=== PATIENT | male | born 1960 | race American Indian/Alaskan Native ===

== ENCOUNTER 2017-01-16 07:57 | Emergency (ER) | payer MEDICARE ==
[2017-01-16] MEDS ORDERED: ULTRAM PO ONE (09:54)
--- NOTE | 2017-01-16 10:20 | XRay Report ---
THORACIC SPINE: History: Back tenderness, pain. Mild to moderate multilevel degenerative disc disease is present throughout the thoracic spine. No compression deformity, malalignment, bone lesion or posterior rib abnormality is detected. IMPRESSION: Mild thoracic spondylosis.
--- NOTE | 2017-01-16 10:20 | XRay Report ---
LUMBOSACRAL SPINE, 3 VIEWS: History: Back pain Findings: Moderate degenerative disc disease and facet arthropathy are identified at L4-5 and L5-S1. Minimal degenerative changes are noted at the remaining levels. No fracture or bone lesion is appreciated. The sacrum and SI joints are within normal limits. Impression: Lumbar spondylosis as described.
[2017-01-16] MEDS ORDERED: TORADOL IM ONE (10:21)
[2017-01-16 11:51] VITALS: BP 134/88
--- NOTE | 2017-01-17 22:07 | Emergency Department Report ---
Entered by GERA JORDAN, acting as scribe for REILLY PLEITEZ NP. ED Back Pain/Injury HPI - General Chief Complaint: Back Pain/Injury Stated Complaint: BACK PAIN Time Seen by Provider: 01/16/17 09:36 Source: patient Limitations: No Limitations - History of Present Illness Initial Comments: 56 year old male with a PMHx of HTN, GERD, and arthritis presents to the ED c/o of back pain that began 3 days ago. 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 Rates pain a 1/10 in severity, and sharp and burning in quality. He states that his pain radiates from his lower back to mid back. Notes pain worsens while lying flat and turning, but states his pain is improved with movement. Patient history of back pain. Denies nausea, vomiting , numbness, tingling, chest pain, and shortness of breath. Patient states that he was driven to the ED by his friend, Leilani, and will not be driving home from the ED. Denies tobacco use and EtOH consumption. NKDA. OCONNELL Complaint: back pain (lower and mid back) Onset/Timin -: days(s) Similar Symptoms Previously: No Place: work (lifting pipes) Radiation: other (radiates from lower back to mid back) Severity: mild Severity scale (0 -10): 1 Quality: burning, sharp Consistency: constant Improves With: movement Worsens With: other (lying flat and turning) Context: while lifting (pipes at work) Associated Symptoms: denies other symptoms. denies: weakness, chest pain, numbness, difficulty walking, cough, difficulty urinating, fever/chills, headaches, abdominal pain, nausea/vomiting, shortness of breath, other ( swelling and pain iin lower extremities) - Related Data Home Medications Medication Instructions Recorded Confirmed Last Taken HYDROcodone/APAP 7.5-325 [[place] 1 tab PO PRN PRN 07/31/16 08/20/16 2 Months Ago 7.5-325 mg TAB] amLODIPine [Norvasc] 10 mg PO DAILY 07/31/16 08/20/16 08/20/16 05:30 10MG Previous Rx's Medication Instructions Recorded Last Taken Type Lansoprazole [Prevacid] 15 mg PO BID #30 cap 01/10/16 1 Week Ago Rx Cyclobenzaprine [Flexeril] 10 mg PO TID PRN #30 tablet 04/02/16 3 Days Ago Rx Metaxalone [Skelaxin] 800 mg PO TID PRN #20 tablet 04/02/16 2 Weeks Ago Rx Lisinopril/Hydrochlorothiazide 1 tab PO QDAY #30 tab 06/29/16 08/20/16 05:30 Rx [Zestoretic 20-25 mg] 1 TAB traMADol [Ultram 50 MG tab] 50 mg PO Q6HR PRN #10 tablet 08/14/16 08/19/16 18: 00 Rx HYDROcodone/APAP 10-325 [[place] 1 each PO Q6HR PRN #10 tablet 09/09/16 Unknown Rx 10/325] HYDROcodone/APAP 5-325 [[place] 1 each PO Q6HR PRN 5 Days 01/16/17 Unknown Rx 5/325] Naproxen [Naprosyn TAB] 500 mg PO BID 10 Days 01/16/17 Unknown Rx Allergies Allergy/AdvReac Type Severity Reaction Status Date / Time No Known Allergies Allergy Verified 09/09/16 08:33 ED Review of Systems Comment: All other systems reviewed and negative Constitutional: denies: chills, fever, weakness, other (tingling) Eyes: denies: eye pain, eye discharge, vision change ENT: denies: ear pain, throat pain Respiratory: denies: cough, orthopnea, shortness of breath, SOB with exertion, SOB at rest Cardiovascular: denies: chest pain, dyspnea on exertion, orthopnea Endocrine: no symptoms reported Gastrointestinal: denies: nausea, vomiting Genitourinary: denies: urgency, dysuria Musculoskeletal: back pain (lower and mid back). denies: joint swelling (lower extremities), other (hip pain and leg pain) Skin: denies: rash, lesions Neurological: denies: numbness, paresthesias, abnormal gait Psychiatric: denies: anxiety, depression Hematological/Lymphatic: denies: easy bleeding, easy bruising ED Past Medical Hx - Past Medical History Previous Medical History?: Yes Hx Hypertension: Yes (X 10 YRS; akes lisinopril and amlodipine) Hx CVA: No Hx Heart Attack/AMI: No Hx Congestive Heart Failure: No Hx Diabetes: No Hx Deep Vein Thrombosis: No Hx Pulmonary Embolism: No Hx GERD: Yes Hx Liver Disease: No Hx Renal Disease: No Hx Sickle Cell Disease: No Hx Arthritis: Yes Hx Seizures: No Hx Kidney Stones: No Hx Psychiatric Treatment: No Hx Asthma: No Hx COPD: No Hx Tuberculosis: No Hx Dementia: No Hx HIV: No Additional medical history: chronic back pain; chronic left leg pain. glaucoma - Surgical History Past Surgical History?: Yes Hx Coronary Stent: No Hx Open Heart Surgery: No Hx Pacemaker: No Hx Internal Defibrillator: No Hx Cholecystectomy: No Hx Appendectomy: No Hx Breast Surgery: No Additional Surgical History: left leg/ankle surgery,left knee surgery. cataract surgery both eyes. left total knee replacement and bone graft - Social History Smoking Status: Never Smoker Substance Use Type: None - Medications Home Medications: Home Medications Medication Instructions Recorded Confirmed Last Taken Type Lansoprazole [Prevacid] 15 mg PO BID #30 cap 01/10/16 08/20/16 1 Week Ago Rx Cyclobenzaprine [Flexeril] 10 mg PO TID PRN #30 tablet 04/02/16 08/20/16 3 Days Ago Rx Metaxalone [Skelaxin] 800 mg PO TID PRN #20 tablet 04/02/16 08/20/16 2 Weeks Ago Rx Lisinopril/Hydrochlorothiazide 1 tab PO QDAY #30 tab 06/29/16 08/20/16 08/20/16 05:30 Rx [Zestoretic 20-25 mg] 1 TAB HYDROcodone/APAP 7.5-325 [[place] 1 tab PO PRN PRN 07/31/16 08/20/16 2 Months Ago History 7.5-325 mg TAB] amLODIPine [Norvasc] 10 mg PO DAILY 07/31/16 08/20/16 08/20/16 05:30 History 10MG traMADol [Ultram 50 MG tab] 50 mg PO Q6HR PRN #10 tablet 08/14/16 08/20/1608/19 18:00 Rx HYDROcodone/APAP 10-325 [[place] 1 each PO Q6HR PRN #10 tablet 09/09/16 Unknown Rx 10/325] HYDROcodone/APAP 5-325 [[place] 1 each PO Q6HR PRN 5 Days 01/16/17 Unknown Rx 5/325] Naproxen [Naprosyn TAB] 500 mg PO BID 10 Days 01/16/17 Unknown Rx ED Physical Exam - General Limitations: No Limitations General appearance: alert, in no apparent distress - Head Head exam: Present: atraumatic, normocephalic - Eye Eye exam: Present: normal appearance, EOMI Pupils: Present: normal accommodation - ENT ENT exam: Present: normal exam, mucous membranes moist - Neck Neck exam: Present: normal inspection, full ROM. Absent: tenderness, lymphadenopathy - Respiratory Respiratory exam: Present: normal lung sounds bilaterally, respiratory distress. Absent: wheezes, rales, rhonchi, stridor - Cardiovascular Cardiovascular Exam: Present: regular rate, normal rhythm. Absent: systolic murmur, diastolic murmur, rubs, gallop - GI/Abdominal GI/Abdominal exam: Present: soft, normal bowel sounds. Absent: distended, tenderness, guarding, rebound, rigid - Extremities Exam Extremities exam: Present: normal inspection, full ROM, normal capillary refill. Absent: tenderness, joint swelling, calf tenderness - Back Exam Back exam: Present: normal inspection, full ROM, tenderness (mid lumbar and thoracic). Absent: CVA tenderness (R), CVA tenderness (L), paraspinal tenderness, vertebral tenderness - Expanded Back Exam Expanded Back exam: Absent: saddle anesthesia Back exam: Negative Straight Leg Raising: Left, Right - Neurological Exam Neurological exam: Present: alert, oriented X3, CN II-XII intact, normal gait - Expanded Neurological Exam Expanded Patient oriented to: Present: person, place, time Speech: Present: fluid speech Motor strength exam: RUE: 5, LUE: 5, RLE: 5, LLE: 5 DTR: bicep (R): 2+, bicep (L): 2+, tricep (R): 2+, tricep (L): 2+, knee (R): 2+ , knee (L): 2+, ankle (R): 2+, ankle (L): 2+ Best Eye Response ([place]): (4) open spontaneously Best Motor Response ([place]): (6) obeys commands Best Verbal Response ([place]): (5) oriented [place] Total: 15 - Psychiatric Psychiatric exam: Present: normal affect, normal mood - Skin Skin exam: Present: warm, dry, intact. Absent: ecchymosis ED Course Vital Signs 01/16/17 01/16/1701/16/17 08:04 10:33 11:09 Temperature 98.0 F Pulse Rate 92 H 87 Respiratory 18 16 16 Rate Blood Pressure 143/92 Blood Pressure 148/93 [Left] O2 Sat by Pulse 99 98 Oximetry 01/16/17 11:50 Temperature Pulse Rate 82 Respiratory 18 Rate Blood Pressure Blood Pressure 134/88 [Left] O2 Sat by Pulse 97 Oximetry - Reevaluation(s) Reevaluation #1: 01/16/17 10:59 Patient stated pain level is 2/10. ED Medical Decision Making - Medical Decision Making Ed course: 56 year old male presents with lumbar and thoracic back pain 1-Ultram 50 mg by mouth administered in the ED 2- x-ray of the lumbar and thoracic: lumbar and thoracic spondylosis. Patient was notified about the x-ray results. 3- at this time the patient does not seem toxic or ill appearance. No signs of any distress noted. 4- patient agrees to discharge plan and stated will follow up with orthopedic doctor in 3-5 days. 5- no further questions noted from the patient. ED Disposition Clinical Impression: Lumbar strain, Back pain Disposition: DISCHARGED TO HOME OR SELFCARE Is pt being admited?: No Does the pt Need Aspirin: No Condition: Stable Instructions: Naproxen (By mouth), Low Back Strain (ED) Additional Instructions: Please follow up with orthopedic doctor in 3-5 days If any sinus symptoms or worsening such as numbness or tingling, bladder stability, chest pain, shortness of breath, nausea vomiting please report back to emergency room. Take medications as prescribed. Take naproxen for pain first. If no improvement in one hour you could take [place]. Do not operate heavy machinery while taking [place]. Prescriptions: HYDROcodone/APAP 5-325 [[place] 5/325] 1 each PO Q6HR PRN 5 Days PRN Reason: Pain Naproxen [Naprosyn TAB] 500 mg PO BID 10 Days Referrals: EZEKIEL KELLY MD [Primary Care Provider] - 3-5 Days SHANNON MCCULLOUGH MD [Staff Physician] - 3-5 Days Forms: Work/School Release Form(ED) This documentation as recorded by the JULIAN payne JASMINE,accurately reflects the service I personally performed and the decisions made by ,REILLY PLEITEZ, VALERIY.
== END 2017-01-16 11:50 | disposition home or self-care (01) ==
LOC: ED 07:57
DX: S39.012A Strain of muscle, fascia and tendon of lower back, initial encounter (principal); I10 Essential (primary) hypertension; K21.9 Gastro-esophageal reflux disease without esophagitis; X50.0XXA Overexertion from strenuous movement or load, initial encounter; Y93.89 Activity, other specified; Y92.89 Other specified places as the place of occurrence of the external cause; Y99.8 Other external cause status; Z98.890 Other specified postprocedural states; Z96.652 Presence of left artificial knee joint
CPT/HCPCS: 72072; 72100; 96372; 99283; J1885

== ENCOUNTER 2017-05-19 08:47 | Emergency (ER) | payer MEDICARE | END 2017-05-19 11:00 | disposition left against medical advice (07) | LOC: ED 08:47 | DX: M25.562 Pain in left knee (principal); Z53.21 Procedure and treatment not carried out due to patient leaving prior to being seen by health care provider ==

== ENCOUNTER 2017-08-06 06:20 | Emergency (ER) | payer MEDICARE | END 2017-08-06 06:30 | disposition left against medical advice (07) | LOC: ED 06:20 | DX: M54.5 Low back pain (principal); Z53.21 Procedure and treatment not carried out due to patient leaving prior to being seen by health care provider ==

== ENCOUNTER 2017-09-27 08:11 | Emergency (ER) | payer MEDICARE ==
[2017-09-27 08:22] VITALS: BP 154/94
--- NOTE | 2017-09-27 09:36 | XRay Report ---
FINAL REPORT EXAM: XR SHOULDER 2+V RT HISTORY: RT SHOULDER PAIN TECHNIQUE: Three views right shoulder. PRIORS: None currently available. FINDINGS: There is no acute fracture. There is no evidence for healing fracture. There is no acute dislocation. [id number] degenerative arthrosis at the acromioclavicular and glenohumeral joints. There is no cortical destruction to suggest osteomyelitis. There are no suspicious osseous lesions. There are no radiopaque foreign objects. IMPRESSION: No acute osseous findings. Degenerative arthrosis.
[2017-09-27] MEDS ORDERED: FLEXERIL PO ONE (09:46)
[2017-09-27] MEDS ORDERED: NORCO 10/325 PO ONE (09:46)
--- NOTE | 2017-09-27 09:49 | Emergency Department Report ---
ED Upper Extremity Inj HPI - General Chief Complaint: Extremity Injury, Upper Stated Complaint: RIGHT SHOULDER PAIN Time Seen by Provider: 09/27/17 08:38 Source: patient Mode of arrival: Ambulatory Limitations: No Limitations - Related Data Home Medications Medication Instructions Recorded Confirmed Last Taken amLODIPine [Norvasc] 10 mg PO DAILY 07/31/16 05/30/17 06/18/17 07:00 Omeprazole Magnesium [PriLOSEC Otc] 20 mg PO QDAY 05/30/17 05/30/17 06/18/17 07: 00 traMADol [Ultram] 50 mg PO Q4HR PRN 06/18/17 06/18/17 06/18/17 07:00 Previous Rx's Medication Instructions Recorded Last Taken Type Lisinopril/Hydrochlorothiazide 1 tab PO QDAY #30 tab 06/29/16 06/18/17 07:00 Rx [Zestoretic 20-25 mg] Cyclobenzaprine [Flexeril] 10 mg PO BID PRN #12 tablet 09/27/17 Unknown Rx traMADol [Ultram] 50 mg PO BID PRN #12 tablet 09/27/17 Unknown Rx Allergies Allergy/AdvReac Type Severity Reaction Status Date / Time No Known Allergies Allergy Verified 09/27/17 08:18 ED Review of Systems ROS: Stated complaint: RIGHT SHOULDER PAIN Other details as noted in HPI Comment: All other systems reviewed and negative Musculoskeletal: other (r shoulder pain) ED Past Medical Hx - Past Medical History Hx Hypertension: Yes (X 10 YRS; akes lisinopril and amlodipine) Hx CVA: No Hx Heart Attack/AMI: No Hx Congestive Heart Failure: No Hx Diabetes: No Hx Deep Vein Thrombosis: No Hx Pulmonary Embolism: No Hx GERD: Yes Hx Liver Disease: No Hx Renal Disease: No Hx Sickle Cell Disease: No Hx Arthritis: Yes Hx Seizures: No Hx Kidney Stones: No Hx Psychiatric Treatment: No Hx Asthma: No Hx COPD: No Hx Tuberculosis: No Hx Dementia: No Hx HIV: No Additional medical history: chronic back pain; chronic left leg pain. glaucoma - Surgical History Hx Coronary Stent: No Hx Open Heart Surgery: No Hx Pacemaker: No Hx Internal Defibrillator: No Hx Cholecystectomy: No Hx Appendectomy: No Hx Breast Surgery: No Additional Surgical History: left leg/ankle surgery,left knee surgery. cataract surgery both eyes. left total knee replacement and bone graft - Social History Smoking Status: Never Smoker Substance Use Type: None - Medications Home Medications: Home Medications Medication Instructions Recorded Confirmed Last Taken Type Lisinopril/Hydrochlorothiazide 1 tab PO QDAY #30 tab 06/29/16 05/30/17 06/18/17 07:00 Rx [Zestoretic 20-25 mg] amLODIPine [Norvasc] 10 mg PO DAILY 07/31/16 05/30/17 06/18/17 07:00 History Omeprazole Magnesium [PriLOSEC Otc] 20 mg PO QDAY 05/30/17 05/30/17 06/18/17 07: 00 History traMADol [Ultram] 50 mg PO Q4HR PRN 06/18/17 06/18/17 06/18/17 07:00 History Cyclobenzaprine [Flexeril] 10 mg PO BID PRN #12 tablet 09/27/17 Unknown Rx traMADol [Ultram] 50 mg PO BID PRN #12 tablet 09/27/17 Unknown Rx ED Physical Exam - General Limitations: No Limitations General appearance: alert - Head Head exam: Present: atraumatic - Eye Eye exam: Present: normal appearance Pupils: Present: normal accommodation - ENT ENT exam: Present: normal exam, mucous membranes moist - Neck Neck exam: Present: normal inspection - Respiratory Respiratory exam: Present: normal lung sounds bilaterally - Cardiovascular Cardiovascular Exam: Present: regular rate - GI/Abdominal GI/Abdominal exam: Present: soft - Rectal Rectal exam: Present: deferred - Extremities Exam Extremities exam: Present: normal inspection, full ROM - Expanded Upper Extremity Exam Right Shoulder Exam: Present: full ROM. Absent: tenderness, swelling, abrasion, laceration, ecchymosis, deformity, crepidus, dislocation, erythema Elbow exam: Present: normal inspection Forearm Wrist exam: Present: normal inspection - Back Exam Back exam: Present: normal inspection, full ROM - Neurological Exam Neurological exam: Present: alert, oriented X3 - Psychiatric Psychiatric exam: Present: normal affect, normal mood - Skin Skin exam: Present: warm, dry, intact ED Course Vital Signs 09/27/17 08:18 Temperature 98.2 F Pulse Rate 100 H Respiratory 18 Rate Blood Pressure 154/94 O2 Sat by Pulse 100 Oximetry ED Medical Decision Making - Radiology Data Radiology results: report reviewed, image reviewed - Medical Decision Making see note - Differential Diagnosis ro dislocation or ac sep Critical care attestation.: If time is entered above; I have spent that time in minutes in the direct care of this critically ill patient, excluding procedure time. ED Disposition Clinical Impression: Sprain of shoulder Disposition: DC-01 TO HOME OR SELFCARE Is pt being admited?: No Does the pt Need Aspirin: No Condition: Stable Instructions: Shoulder Sprain (ED), Arthralgia (ED) Additional Instructions: alternate heat and ice med as ordered rest sling follow up ortho jensen Prescriptions: Cyclobenzaprine [Flexeril] 10 mg PO BID PRN #12 tablet PRN Reason: Muscle Spasm traMADol [Ultram] 50 mg PO BID PRN #12 tablet PRN Reason: Pain Referrals: PRIMARY CARE, [Primary Care Provider] - 3-5 Days SHANNON MCCULLOUGH MD [Staff Physician] - 3-5 Days Time of Disposition: 09:47
== END 2017-09-27 10:45 | disposition home or self-care (01) ==
LOC: ED 08:11
DX: S43.491A Other sprain of right shoulder joint, initial encounter (principal); I10 Essential (primary) hypertension; K21.9 Gastro-esophageal reflux disease without esophagitis; M19.90 Unspecified osteoarthritis, unspecified site; G89.29 Other chronic pain; X50.9XXA Other and unspecified overexertion or strenuous movements or postures, initial encounter; Y93.89 Activity, other specified; Y92.89 Other specified places as the place of occurrence of the external cause; Y99.8 Other external cause status
CPT/HCPCS: 99283

== ENCOUNTER 2017-12-04 05:49 | Emergency (ER) | payer SELFPAY | END 2017-12-04 07:50 | disposition left against medical advice (07) | LOC: EDBD → ED 05:49 | DX: M25.511 Pain in right shoulder (principal); Z53.21 Procedure and treatment not carried out due to patient leaving prior to being seen by health care provider ==

== ENCOUNTER 2017-12-05 08:55 | Emergency (ER) | payer MEDICAID, MEDICARE ==
[2017-12-05 09:07] VITALS: BP 150/96
--- NOTE | 2017-12-05 10:16 | Emergency Department Report ---
Chief Complaint: High BP Stated Complaint: R SHOULDER PAIN Time Seen by Provider: 12/05/17 09:52 - HPI History of Present Illness: Patient is a 57-year-old male with a history of hypertension controlled with medication who presents to ED today stating that he ran out of his medication for the past 2 days and needs a medication refill. Patient also states that he has chronic shoulder right shoulder pain which he has been seeing Dr. Crawford the orthopedic floor. Patient states Dr. Crawford is out of town and is not able to see him. Patient denies any symptoms today such as headache, vision, chest pain, shortness of breath or any other problems. - ROS Review of Systems: As noted in HPI, denies all other symptoms - Exam Vital Signs: Vital Signs 12/05/17 09:02 Temperature 97.7 F Pulse Rate 91 H Respiratory 20 Rate Blood Pressure 150/96 O2 Sat by Pulse 97 Oximetry Physical Exam: GENERAL: Alert and oriented x3, no apparent distress, Normal Gait, atraumatic. HEAD: Head is normocephalic and a-traumatic. LUNGS: Symetrical with respiration, No wheezing, no rales or crackles, CTAB. HEART: S1, S2 present, regular rate and rhythm without murmur, no rubs, no gallops. Non tender to palpation EXTREMITIES/MUSCULOSKELETAL: No cyanosis, clubbing, rash, lesions or edema. Full ROM bilaterallyon all extremities. NEUROLOGIC: The patient is cooperative with no focal neurologic deficits. Normal speech. No loss of sensation, SKIN: Warm and dry, No lesions, No ulceration or induration present. MSE screening note: Focused history and physical exam performed. Due to findings the following was ordered: ED Medical Decision Making - Medical Decision Making 57-year-old male presents with blood pressure medication refill ED Course: Patient has no symptoms during his stay sign discussed the patient follow up with his primary care physician. Discussed with the patient of any worsening or new onset of symptoms return to ED Vital signs are stable patient is in no acute distress ED Disposition for MSE Clinical Impression: Medication refill Disposition: DC-01 TO HOME OR SELFCARE Is pt being admited?: No Does the pt Need Aspirin: No Condition: Stable Instructions: Chronic Hypertension (ED) Additional Instructions: Make sure to follow up with the primary care physician as discussed. Take all your medications as you've been prescribed. If you have any worsening symptoms or develop new symptoms please return to ED immediately. Prescriptions: amLODIPine [Norvasc] 10 mg PO DAILY #30 tablet Lisinopril/Hydrochlorothiazide [Zestoretic 20-25 mg] 1 tab PO QDAY #30 tab traMADol [Ultram 50 MG tab] 50 mg PO Q6HR PRN #20 tablet PRN Reason: Pain Referrals: PRIMARY CAREMD [Primary Care Provider] - 3-5 Days NGOZI JARRETT MD [Referring] - 3-5 Days [facility] [Outside] - 3-5 Days [facility] [Outside] - 3-5 Days [facility] [Outside] - 3-5 Days [facility] [Outside] - 3-5 Days Forms: Work/School Release Form(ED) Time of Disposition: 10:18
== END 2017-12-05 10:33 | disposition home or self-care (01) ==
LOC: EDBD → ED 08:55
DX: Z76.0 Encounter for issue of repeat prescription (principal); I10 Essential (primary) hypertension; M25.511 Pain in right shoulder; G89.29 Other chronic pain
CPT/HCPCS: 99282

== ENCOUNTER 2017-12-18 08:57 | Emergency (ER) | payer MEDICARE, MEDICAID ==
[2017-12-18 09:49] VITALS: BP 151/85
[2017-12-18 10:42] LABS: Bilirubin,Urine NEG (Negative); Blood,Urine NEG (Negative); Color,Urine Yellow (Yellow); Protein,Urine <15 mg/dL mg/dL (Negative); Urobilinogen,Urine < 2.0 mg/dL (<2.0); WBC,Urine < 1.0 /HPF (0.0-6.0)
[2017-12-18] MEDS ORDERED: ULTRAM PO ONE (11:51)
--- NOTE | 2017-12-18 11:53 | Emergency Department Report ---
HPI - General Chief Complaint: Back Pain/Injury Time Seen by Provider: 12/18/17 11:37 - HPI HPI: Patient is a 57-year-old male with a history of hypertension controlled with medication who presents to ED complaining of upper back pain for the past 2 days. Patient states the pain came on suddenly. Patient states he had no trauma,injury or fall. Patient describes been as throbbing aching in nature, nonradiating, 5-10 intensity. Patient also says that he has been out of his blood pressure medications and needs a refill. Patient states he has an active primary care referral. Possible as refill on his Flonase for allergies. Patient states he saw a bit of pink tinged blood in his urine 2 days ago. He denies fever/chills/nausea/vomiting/chest pain/shortness of breath. ED Past Medical Hx - Past Medical History Previous Medical History?: Yes Hx Hypertension: Yes (X 10 YRS; akes lisinopril and amlodipine) Hx CVA: No Hx Heart Attack/AMI: No Hx Congestive Heart Failure: No Hx Diabetes: No Hx Deep Vein Thrombosis: No Hx Pulmonary Embolism: No Hx GERD: Yes Hx Liver Disease: No Hx Renal Disease: No Hx of Cancer: Yes (Prostate CA 2013) Hx Sickle Cell Disease: No Hx Arthritis: Yes Hx Seizures: No Hx Kidney Stones: No Hx Psychiatric Treatment: No Hx Asthma: No Hx COPD: No Hx Tuberculosis: No Hx Dementia: No Hx HIV: No Additional medical history: chronic back pain; chronic left leg pain. glaucoma - Surgical History Hx Coronary Stent: No Hx Open Heart Surgery: No Hx Pacemaker: No Hx Internal Defibrillator: No Hx Cholecystectomy: No Hx Appendectomy: No Hx Breast Surgery: No Additional Surgical History: left leg/ankle surgery,left knee surgery. cataract surgery both eyes. left total knee replacement and bone graft - Social History Smoking Status: Former Smoker - Medications Home Medications: Home Medications Medication Instructions Recorded Confirmed Last Taken Type Omeprazole Magnesium [PriLOSEC Otc] 20 mg PO QDAY 05/30/17 05/30/17 06/18/17 07: 00 History traMADol [Ultram] 50 mg PO BID PRN #12 tablet 09/27/17 Unknown Rx Fluticasone [Flonase] 1 spray NS QDAY #1 bottle 12/18/17 Unknown Rx Lisinopril/Hydrochlorothiazide 1 tab PO QDAY #40 tab 12/18/17 Unknown Rx [Zestoretic 20-25 mg] amLODIPine [Norvasc] 10 mg PO DAILY #40 tablet 12/18/17 Unknown Rx traMADol [Ultram 50 MG tab] 50 mg PO Q6HR PRN #20 tablet 12/18/17 Unknown Rx ED Review of Systems ROS: Stated complaint: UPPER BACK PAIN Other details as noted in HPI Constitutional: denies: chills, fever Eyes: denies: eye pain, eye discharge, vision change ENT: denies: ear pain, throat pain Respiratory: denies: cough, shortness of breath, wheezing Cardiovascular: denies: chest pain, palpitations Endocrine: no symptoms reported Gastrointestinal: denies: abdominal pain, nausea, vomiting, diarrhea Genitourinary: hematuria. denies: urgency, dysuria, frequency, discharge, testicular pain, testicular mass Musculoskeletal: back pain, myalgia. denies: joint swelling, arthralgia Skin: denies: rash, lesions Neurological: denies: headache, weakness, paresthesias Psychiatric: denies: anxiety, depression Hematological/Lymphatic: denies: easy bleeding, easy bruising Physical Exam - Physical Exam Vital Signs: Vital Signs 12/18/17 09:43 Temperature 98.4 F Pulse Rate 88 Respiratory 12 Rate Blood Pressure 151/85 O2 Sat by Pulse 98 Oximetry Physical Exam: GENERAL: Alert and oriented x3, no apparent distress, Normal Gait, atraumatic. HEAD: Head is normocephalic and a-traumatic. NECK: Supple. Non edematous, No carotid bruits. No lymphadenopathy or thyromegaly. No C-spine tenderness LUNGS: Symetrical with respiration, No wheezing, no rales or crackles, CTAB. HEART: S1, S2 present, regular rate and rhythm without murmur, no rubs, no gallops. Non tender to palpation ABDOMEN: No organomegaly was noted,Positive bowel sounds, soft, and non- distended. . Nontender to palpation on all Quadrants, NO CVA tenderness. BACK: Full range of motion, no spinal tenderness, nontender to palpation. EXTREMITIES/MUSCULOSKELETAL: No cyanosis, clubbing, rash, lesions or edema. Full ROM bilaterally. UE/LE Pulses 2+ bilaterally. LE and UE 5+ strength bilaterally, straight leg raise negative bilaterally NEUROLOGIC: The patient is cooperative with no focal neurologic deficits. SKIN: Warm and dry, No lesions, No ulceration or induration present. ED Course Vital Signs 12/18/17 09:43 Temperature 98.4 F Pulse Rate 88 Respiratory 12 Rate Blood Pressure 151/85 O2 Sat by Pulse 98 Oximetry ED Medical Decision Making - Medical Decision Making 57-year-old male presents to ED with myalgia of back ED course: Patient received tramadol in ED. Urinalysis is ordered. Urinalysis shows no acute findings, normal I discussed this with the patient Vital signs are normal patient is in no acute distress Discussed with patient follow-up with primary care physician. Discussed the patient and take medications as prescribed. Patient has no neurological deficit. Patient is alert and oriented 3 and understands all instructions given. Discussed drowsiness effect oftramadol makes her drowsy and not to operate machinery while taking tramadol Critical care attestation.: If time is entered above; I have spent that time in minutes in the direct care of this critically ill patient, excluding procedure time. ED Disposition Clinical Impression: Medication refill, Myalgia Back pain Qualifiers: Back pain location: thoracic back pain Chronicity: chronic Back pain laterality : bilateral Qualified Code(s): M54.6 - Pain in thoracic spine; G89.29 - Other chronic pain Disposition: - TO HOME OR SELFCARE Is pt being admited?: No Does the pt Need Aspirin: No Condition: Stable Instructions: Musculoskeletal Pain (ED), Trigger Point Pain (ED) Additional Instructions: Make sure to follow up with the primary care physician as discussed. Take all your medications as you've been prescribed. If you have any worsening symptoms or develop new symptoms please return to ED immediately. Prescriptions: amLODIPine [Norvasc] 10 mg PO DAILY #40 tablet Fluticasone [Flonase] 1 spray NS QDAY #1 bottle Lisinopril/Hydrochlorothiazide [Zestoretic 20-25 mg] 1 tab PO QDAY #40 tab traMADol [Ultram 50 MG tab] 50 mg PO Q6HR PRN #20 tablet PRN Reason: Pain Referrals: BRENDON SALAZAR MD [Primary Care Provider] - 3-5 Days [facility] [Outside] - 3-5 Days [facility] [Outside] - 3-5 Days [facility] [Outside] - 3-5 Days [facility] [Outside] - 3-5 Days Forms: Work/School Release Form(ED), Accompanied Note Time of Disposition: 12:42
== END 2017-12-18 12:59 | disposition home or self-care (01) ==
LOC: ED 08:57
DX: M54.6 Pain in thoracic spine (principal); M79.1 Myalgia
CPT/HCPCS: 81001

== ENCOUNTER 2018-01-08 14:09 | Emergency (ER) | payer MEDICAID, MEDICARE ==
[2018-01-08] MEDS ORDERED: ASPIRIN PO ONE (14:58)
[2018-01-08 15:20] LABS: Hematocrit 41.6 % (35.5-45.6); Hemoglobin 13.8 gm/dl (11.8-15.2); Mean Corpuscular HGB Conc 33 % (32-34); Mean Corpuscular Hemoglobin 28 pg (28-32); Mean Corpuscular Volume 85 fl (84-94); Platelet Count 334 K/mm3 (140-440); Red Blood Count 4.89 M/mm3 (3.65-5.03); Red Cell Distribution Width 13.2 % (13.2-15.2)
[2018-01-08 15:34] LABS: BUN/Creatinine Ratio 28; Blood Urea Nitrogen 25 mg/dL (9-20); Calcium 9.2 mg/dL (8.4-10.2); Hemolysis Index 1
[2018-01-08 16:04] LABS: Basophils % (Manual) 0 % (0.0-1.8); Total Cells Counted 100
[2018-01-08 16:05] LABS: Anisocytosis Few
[2018-01-08 21:57] VITALS: BP 129/81
--- NOTE | 2018-01-08 22:39 | Emergency Department Report ---
ED General Adult HPI - General Chief complaint: Chest Pain Stated complaint: EXCESSIVE YAWNING/FLUID AROUND HEART Time Seen by Provider: 01/08/18 22:02 Source: patient Mode of arrival: Ambulatory Limitations: No Limitations - History of Present Illness Initial comments: worried about fluidAround his heart, intermittent chest pain, "pulled my right shoulder"here eval hx of htn and int cp off and on, poor hx but thinks it's at rest and w/ exertion, no calf pain or swelling, no risk dvt/pe, no sob, need pain pills for my shoulder, mid chest w/ reproducible cw pain -: Gradual, days(s), unknown Location: chest, right, upper extremity Radiation: non-radiation Severity scale (0 -10): 0 Quality: burning, other (off and on) Consistency: intermittent Associated Symptoms: denies other symptoms. denies: confusion, cough, diaphoresis, fever/chills, headaches, loss of appetite, malaise, nausea/vomiting , rash, seizure, shortness of breath, syncope, weakness - Related Data Home Medications Medication Instructions Recorded Confirmed Last Taken Omeprazole Magnesium [PriLOSEC Otc] 20 mg PO QDAY 05/30/17 05/30/17 06/18/17 07: 00 Previous Rx's Medication Instructions Recorded Last Taken Type traMADol [Ultram] 50 mg PO BID PRN #12 tablet 09/27/17 Unknown Rx Fluticasone [Flonase] 1 spray NS QDAY #1 bottle 12/18/17 Unknown Rx Lisinopril/Hydrochlorothiazide 1 tab PO QDAY #40 tab 12/18/17 Unknown Rx [Zestoretic 20-25 mg] amLODIPine [Norvasc] 10 mg PO DAILY #40 tablet 12/18/17 Unknown Rx traMADol [Ultram 50 MG tab] 50 mg PO Q6HR PRN #20 tablet 01/09/18 Unknown Rx Allergies Allergy/AdvReac Type Severity Reaction Status Date / Time No Known Allergies Allergy Verified 01/08/18 14:51 ED Review of Systems ROS: Stated complaint: EXCESSIVE YAWNING/FLUID AROUND HEART Other details as noted in HPI Comment: All other systems reviewed and negative Constitutional: denies: diaphoresis, fever, malaise Eyes: denies: eye discharge, vision change ENT: denies: dental pain, hearing loss, epistaxis Respiratory: denies: cough, orthopnea, shortness of breath, SOB with exertion, SOB at rest, stridor, wheezing Cardiovascular: chest pain. denies: palpitations, dyspnea on exertion, orthopnea, edema, syncope, paroxysmal nocturnal dyspnea Gastrointestinal: denies: abdominal pain, nausea, vomiting, diarrhea, constipation, hematemesis, melena, hematochezia Genitourinary: denies: frequency, hematuria, discharge Musculoskeletal: denies: joint swelling, arthralgia Neurological: denies: headache, weakness, numbness, paresthesias, confusion, abnormal gait, vertigo Psychiatric: denies: anxiety, depression ED Past Medical Hx - Past Medical History Hx Hypertension: Yes (X 10 YRS; akes lisinopril and amlodipine) Hx CVA: No Hx Heart Attack/AMI: No Hx Congestive Heart Failure: No Hx Diabetes: No Hx Deep Vein Thrombosis: No Hx Pulmonary Embolism: No Hx GERD: Yes Hx Liver Disease: No Hx Renal Disease: No Hx Sickle Cell Disease: No Hx Arthritis: Yes Hx Seizures: No Hx Kidney Stones: No Hx Psychiatric Treatment: No Hx Asthma: No Hx COPD: No Hx Tuberculosis: No Hx Dementia: No Hx HIV: No Additional medical history: chronic back pain; chronic left leg pain. glaucoma - Surgical History Hx Coronary Stent: No Hx Open Heart Surgery: No Hx Pacemaker: No Hx Internal Defibrillator: No Hx Cholecystectomy: No Hx Appendectomy: No Hx Breast Surgery: No Additional Surgical History: left leg/ankle surgery,left knee surgery. cataract surgery both eyes. left total knee replacement and bone graft - Social History Smoking Status: Former Smoker - Medications Home Medications: Home Medications Medication Instructions Recorded Confirmed Last Taken Type Omeprazole Magnesium [PriLOSEC Otc] 20 mg PO QDAY 05/30/17 05/30/17 06/18/17 07: 00 History traMADol [Ultram] 50 mg PO BID PRN #12 tablet 09/27/17 Unknown Rx Fluticasone [Flonase] 1 spray NS QDAY #1 bottle 12/18/17 Unknown Rx Lisinopril/Hydrochlorothiazide 1 tab PO QDAY #40 tab 12/18/17 Unknown Rx [Zestoretic 20-25 mg] amLODIPine [Norvasc] 10 mg PO DAILY #40 tablet 12/18/17 Unknown Rx traMADol [Ultram 50 MG tab] 50 mg PO Q6HR PRN #20 tablet 01/09/18 Unknown Rx ED Physical Exam - General Limitations: No Limitations General appearance: alert, in no apparent distress, anxious - Head Head exam: Present: atraumatic, normocephalic - Eye Eye exam: Present: normal appearance, PERRL, EOMI - ENT ENT exam: Present: normal exam, normal orophraynx - Neck Neck exam: Present: normal inspection. Absent: tenderness, meningismus - Respiratory Respiratory exam: Present: normal lung sounds bilaterally, chest wall tenderness , other (pulses equal b). Absent: respiratory distress, wheezes, rales, rhonchi , stridor, accessory muscle use, decreased breath sounds, prolonged expiratory - Cardiovascular Cardiovascular Exam: Present: regular rate, normal rhythm, normal heart sounds. Absent: systolic murmur, diastolic murmur, rubs, gallop - GI/Abdominal GI/Abdominal exam: Present: soft. Absent: tenderness, guarding, rebound, rigid , mass, pulsatile mass - Extremities Exam Extremities exam: Present: normal inspection. Absent: tenderness, normal capillary refill, pedal edema, joint swelling, calf tenderness - Back Exam Back exam: Present: normal inspection. Absent: CVA tenderness (L), muscle spasm , paraspinal tenderness, vertebral tenderness - Neurological Exam Neurological exam: Present: alert, oriented X3, CN II-XII intact. Absent: motor sensory deficit (right shoulder exam and point tenderness over the deltoid neurovascular intact no crepitus deformity) - Psychiatric Psychiatric exam: Present: normal affect - Skin Skin exam: Absent: cyanosis, diaphoretic, erythema, urticaria, vesicles, petechiae, pallor, abrasion, ecchymosis ED Course Vital Signs 01/08/18 01/08/18 14:52 21:57 Temperature 98.2 F 97.4 F L Pulse Rate 78 97 H Respiratory 18 16 Rate Blood Pressure 125/77 Blood Pressure 129/81 [Left] O2 Sat by Pulse 97 98 Oximetry ED Medical Decision Making - Lab Data Result diagrams: 01/08/18 15:03 01/08/18 15:03 - EKG Data -: EKG Interpreted by Ga EKG shows normal: sinus rhythm Rate: normal - EKG Data When compared to previous EKG there are: no significant change Interpretation: no acute changes, LVH - Radiology Data Radiology results: image reviewed - Medical Decision Making Patient with atypical chest pain trop are negative 3/8 hours. I will cases was unremarkable chest x-ray unremarkable. Postsurgical bilaterally and history is atypical. Patient will be restarted on his tramadol for his chronic right shoulder pain. He thinks he pulled something mowing the yard. No evidence of early emergent cardiac process at this time will require admission at this time he is a stable for outpatient follow-up Critical care attestation.: If time is entered above; I have spent that time in minutes in the direct care of this critically ill patient, excluding procedure time. ED Disposition Clinical Impression: Atypical chest pain, Right shoulder strain Disposition: - TO HOME OR SELFCARE Is pt being admited?: No Condition: Stable Instructions: Chest Pain (ED), Shoulder Sprain (ED) Additional Instructions: See the doctor listed return if new alarming symptoms Prescriptions: traMADol [Ultram 50 MG tab] 50 mg PO Q6HR PRN #20 tablet PRN Reason: Pain Referrals: NOHEMI BLACK MD [Primary Care Provider] - 3-5 Days Time of Disposition: 00:09
--- NOTE | 2018-01-08 23:58 | XRay Report ---
FINAL REPORT PROCEDURE: XR CHEST ROUTINE 2V TECHNIQUE: A portable AP chest radiograph was obtained at 01/08/2018 22:45 (EST) . CPT 65885 HISTORY: wheezes COMPARISON: No prior studies are available for comparison. FINDINGS: Heart: Normal. Mediastinum/Vessels: Normal. Lungs/Pleural space: Normal. Bony thorax: No acute osseous abnormality. Life support devices: None. IMPRESSION: No acute cardiopulmonary abnormality.
== END 2018-01-09 | disposition home or self-care (01) ==
LOC: ED 14:09
DX: R07.89 Other chest pain (principal); S46.911A Strain of unspecified muscle, fascia and tendon at shoulder and upper arm level, right arm, initial encounter; X58.XXXA Exposure to other specified factors, initial encounter; Y93.89 Activity, other specified; Y92.89 Other specified places as the place of occurrence of the external cause; Y99.8 Other external cause status; I10 Essential (primary) hypertension
CPT/HCPCS: 36415; 71046; 80048; 83880; 84484; 85007; 85025; 85730; 93005; 93010

== ENCOUNTER 2018-10-20 09:26 | Outpatient (CLI) | payer MEDICARE ==
--- NOTE | 2018-10-20 11:37 | XRay Report ---
XRAY RIGHT SHOULDER THREE VIEWS: 10/20/18 09:26:00 CLINICAL: Status post right rotator cuff repair. COMPARISON: 09/10/18 FINDINGS: Normal glenohumeral alignment. Stable chronic displaced fracture of the distal clavicle. Minimal callus at the fracture site. The more distal fracture fragment is in normal alignment with the acromion and the acromioclavicular joint is normal. Fixation screws in the humeral head from the rotator cuff repair are unchanged. Normal soft tissues. 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 Status post rotator cuff repair with normal appearance of fixation screws.
== END 2018-10-20 09:27 | disposition home or self-care (01) ==
LOC: XRAY 09:26
PROVIDERS: ATTEND Orthopaedic Surgery
DX: S42.031A Displaced fracture of lateral end of right clavicle, initial encounter for closed fracture (principal); I10 Essential (primary) hypertension; K21.9 Gastro-esophageal reflux disease without esophagitis; E66.9 Obesity, unspecified; M19.90 Unspecified osteoarthritis, unspecified site; Z87.891 Personal history of nicotine dependence; X58.XXXA Exposure to other specified factors, initial encounter; Y93.89 Activity, other specified; Y92.89 Other specified places as the place of occurrence of the external cause; Y99.8 Other external cause status

== ENCOUNTER 2018-11-17 09:47 | Emergency (ER) | payer MEDICARE ==
[2018-11-17 10:00] VITALS: BP 132/76
--- NOTE | 2018-11-17 10:14 | Emergency Department Report ---
ED Extremity Problem HPI - General Chief complaint: Extremity Injury, Upper Stated complaint: RT SHOULDER PAIN Time Seen by Provider: 11/17/18 10:09 Source: patient Mode of arrival: Ambulatory Limitations: No Limitations - History of Present Illness Initial comments: Patient is a 58-year-old -[place] male who is complaining of some right shoulder pain for the past 4-5 days. Patient states pain is worse as 8 out of 10 in severity. Hurts worse with movement. He denies any direct trauma and states he has been moving some [employer] in his garage think he may have pulled something. Patient's denies any other complaints this time. Severity scale (0 -10): 10 - Related Data Home Medications Medication Instructions Recorded Confirmed Last Taken Omeprazole Magnesium [PriLOSEC Otc] 20 mg PO QDAY 05/30/17 07/10/18 07/09/18 Ibuprofen [Motrin] 800 mg PO Q8HR PRN 06/30/18 07/10/18 07/03/18 Previous Rx's Medication Instructions Recorded Last Taken Type Fluticasone [Flonase] 1 spray NS QDAY #1 bottle 12/18/17 07/08/18 Rx Lisinopril/Hydrochlorothiazide 1 tab PO QDAY #40 tab 12/18/17 07/09/18 09:00 Rx [Zestoretic 20-25 mg] amLODIPine [Norvasc] 10 mg PO DAILY #40 tablet 12/18/17 07/09/18 09:00 Rx traMADol [Ultram 50 MG tab] 50 mg PO Q6HR PRN #20 tablet 01/09/18 07/09/18 09:30 Rx Oxycodone HCl [oxyCODONE TAB] 10 mg PO Q6H PRN #30 tablet 07/10/18 Unknown Rx Naproxen [Naprosyn] 500 mg PO TID #12 tablet 07/30/18 Unknown Rx traMADol [Ultram 50 MG tab] 50 mg PO Q6HR PRN #8 tablet 07/30/18 Unknown Rx Butalb/Acetamin/Caff 50-325-40 1 tab PO Q6HR PRN #8 tab 08/12/18 Unknown Rx [Fioricet] Ibuprofen [Motrin 800 MG tab] 800 mg PO Q8HR PRN #12 tablet 08/12/18 Unknown Rx traMADol [Ultram 50 MG tab] 50 mg PO Q6HR PRN #5 tablet 09/10/18 Unknown Rx Ibuprofen [Motrin] 600 mg PO Q8H PRN #20 tablet 11/17/18 Unknown Rx methOCARBAMOL [Robaxin TAB] 500 mg PO Q6H PRN #15 tablet 11/17/18 Unknown Rx traMADol [Ultram] 50 mg PO Q6HR PRN #12 tablet 11/17/18 Unknown Rx Allergies Allergy/AdvReac Type Severity Reaction Status Date / Time No Known Allergies Allergy Verified 09/09/18 09:26 ED Review of Systems ROS: Stated complaint: RT SHOULDER PAIN Other details as noted in HPI Comment: All other systems reviewed and negative ED Past Medical Hx - Past Medical History Hx Hypertension: Yes (X 12 YRS) Hx CVA: No Hx Heart Attack/AMI: No Hx Congestive Heart Failure: No Hx Diabetes: No Hx Deep Vein Thrombosis: No Hx Pulmonary Embolism: No Hx GERD: Yes Hx Liver Disease: No Hx Renal Disease: No Hx Sickle Cell Disease: No Hx Arthritis: Yes Hx Seizures: No Hx Kidney Stones: No Hx Psychiatric Treatment: No Hx Asthma: No Hx COPD: No Hx Tuberculosis: No Hx Dementia: No Hx HIV: No Additional medical history: chronic back pain; chronic left leg pain. glaucoma - Surgical History Hx Coronary Stent: No Hx Open Heart Surgery: No Hx Pacemaker: No Hx Internal Defibrillator: No Hx Cholecystectomy: No Hx Appendectomy: No Hx Breast Surgery: No Additional Surgical History: left leg/ankle surgery,left knee surgery. cataract surgery both eyes. left total knee replacement and bone graft 08/20/16 - Social History Smoking Status: Former Smoker Substance Use Type: None - Medications Home Medications: Home Medications Medication Instructions Recorded Confirmed Last Taken Type Omeprazole Magnesium [PriLOSEC Otc] 20 mg PO QDAY 05/30/17 07/10/18 07/09/18 History Fluticasone [Flonase] 1 spray NS QDAY #1 bottle 12/18/17 07/10/18 07/08/18 Rx Lisinopril/Hydrochlorothiazide 1 tab PO QDAY #40 tab 12/18/17 07/10/18 07/09/18 09:00 Rx [Zestoretic 20-25 mg] amLODIPine [Norvasc] 10 mg PO DAILY #40 tablet 12/18/17 07/10/18 07/09/18 09:00 Rx traMADol [Ultram 50 MG tab] 50 mg PO Q6HR PRN #20 tablet 01/09/18 07/10/18 07/09/18 09:30 Rx Ibuprofen [Motrin] 800 mg PO Q8HR PRN 06/30/18 07/10/18 07/03/18 History Oxycodone HCl [oxyCODONE TAB] 10 mg PO Q6H PRN #30 tablet 07/10/18 Unknown Rx Naproxen [Naprosyn] 500 mg PO TID #12 tablet 07/30/18 Unknown Rx traMADol [Ultram 50 MG tab] 50 mg PO Q6HR PRN #8 tablet 07/30/18 Unknown Rx Butalb/Acetamin/Caff 50-325-40 1 tab PO Q6HR PRN #8 tab 08/12/18 Unknown Rx [Fioricet] Ibuprofen [Motrin 800 MG tab] 800 mg PO Q8HR PRN #12 tablet 08/12/18 Unknown Rx traMADol [Ultram 50 MG tab] 50 mg PO Q6HR PRN #5 tablet 09/10/18 Unknown Rx Ibuprofen [Motrin] 600 mg PO Q8H PRN #20 tablet 11/17/18 Unknown Rx methOCARBAMOL [Robaxin TAB] 500 mg PO Q6H PRN #15 tablet 11/17/18 Unknown Rx traMADol [Ultram] 50 mg PO Q6HR PRN #12 tablet 11/17/18 Unknown Rx ED Physical Exam - General Limitations: No Limitations General appearance: alert, in no apparent distress - Head Head exam: Present: atraumatic, normocephalic - Eye Eye exam: Present: normal appearance - ENT ENT exam: Present: mucous membranes moist - Neck Neck exam: Present: normal inspection - Respiratory Respiratory exam: Present: normal lung sounds bilaterally. Absent: respiratory distress, wheezes, rales - Cardiovascular Cardiovascular Exam: Present: regular rate, normal rhythm. Absent: systolic murmur, diastolic murmur, rubs, gallop - GI/Abdominal GI/Abdominal exam: Present: soft, normal bowel sounds - Rectal Rectal exam: Present: deferred - Extremities Exam Extremities exam: Present: normal inspection, full ROM, tenderness (right shoulder), other (there is no detoid feformity or pain at the AC joint, no crepitus). Absent: joint swelling - Back Exam Back exam: Present: normal inspection - Neurological Exam Neurological exam: Present: alert, oriented X3 - Psychiatric Psychiatric exam: Present: normal affect, normal mood - Skin Skin exam: Present: warm, dry, intact, normal color. Absent: rash ED Course Vital Signs 11/17/18 09:58 Temperature 97.4 F L Pulse Rate 89 Respiratory 20 Rate Blood Pressure 132/76 O2 Sat by Pulse 100 Oximetry ED Medical Decision Making - Medical Decision Making Patient be started on meds for symptomatic relief. Critical care attestation.: If time is entered above; I have spent that time in minutes in the direct care of this critically ill patient, excluding procedure time. ED Disposition Clinical Impression: Arthritis pain of shoulder Disposition: DC-01 TO HOME OR SELFCARE Is pt being admited?: No Does the pt Need Aspirin: No Condition: Stable Instructions: RICE Therapy (ED), Rotator Cuff Injury (ED) Referrals: SHANNON MCCULLOUGH MD [Staff Physician] - 3-5 Days Time of Disposition: 10:14
== END 2018-11-17 10:24 | disposition home or self-care (01) ==
LOC: ED 09:47
DX: M25.511 Pain in right shoulder (principal); I10 Essential (primary) hypertension; K21.9 Gastro-esophageal reflux disease without esophagitis; M19.90 Unspecified osteoarthritis, unspecified site; G89.29 Other chronic pain; Z87.891 Personal history of nicotine dependence; Z79.899 Other long term (current) drug therapy
CPT/HCPCS: 99282

== ENCOUNTER 2018-12-02 07:38 | Emergency (ER) | payer MEDICARE ==
[2018-12-02 07:49] VITALS: BP 135/84
--- NOTE | 2018-12-02 09:19 | Emergency Department Report ---
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 Patient states he did not fall sustaining any injuries to it but thinks he pulled a muscle while he was lifting the mower. He states pain is localized to his right shoulder region nonradiating throbbing and aching in nature. Noted that this is a patient of Dr. Crawford who is being followed by his office for follow up of recent rotator cuff repair. ED Past Medical Hx - Past Medical History Hx Hypertension: Yes (X 12 YRS) Hx CVA: No Hx Heart Attack/AMI: No Hx Congestive Heart Failure: No Hx Diabetes: No Hx Deep Vein Thrombosis: No Hx Pulmonary Embolism: No Hx GERD: Yes Hx Liver Disease: No Hx Renal Disease: No Hx Sickle Cell Disease: No Hx Arthritis: Yes Hx Seizures: No Hx Kidney Stones: No Hx Psychiatric Treatment: No Hx Asthma: No Hx COPD: No Hx Tuberculosis: No Hx Dementia: No Hx HIV: No Additional medical history: chronic back pain; chronic left leg pain. glaucoma - Surgical History Past Surgical History?: Yes Hx Coronary Stent: No Hx Open Heart Surgery: No Hx Pacemaker: No Hx Internal Defibrillator: No Hx Cholecystectomy: No Hx Appendectomy: No Hx Breast Surgery: No Additional Surgical History: left leg/ankle surgery,left knee surgery. cataract surgery both eyes. left total knee replacement and bone graft 08/20/16 - Social History Smoking Status: Never Smoker Substance Use Type: None - Medications Home Medications: Home Medications Medication Instructions Recorded Confirmed Last Taken Type Omeprazole Magnesium [PriLOSEC Otc] 20 mg PO QDAY 05/30/17 07/10/18 07/09/18 History Fluticasone [Flonase] 1 spray NS QDAY #1 bottle 12/18/17 07/10/18 07/08/18 Rx Lisinopril/Hydrochlorothiazide 1 tab PO QDAY #40 tab 12/18/17 07/10/18 07/09/18 09:00 Rx [Zestoretic 20-25 mg] amLODIPine [Norvasc] 10 mg PO DAILY #40 tablet 12/18/17 07/10/18 07/09/18 09:00 Rx traMADol [Ultram 50 MG tab] 50 mg PO Q6HR PRN #20 tablet 01/09/18 07/10/18 07/09/18 09:30 Rx Ibuprofen [Motrin] 800 mg PO Q8HR PRN 06/30/18 07/10/18 07/03/18 History Oxycodone HCl [oxyCODONE TAB] 10 mg PO Q6H PRN #30 tablet 07/10/18 Unknown Rx Naproxen [Naprosyn] 500 mg PO TID #12 tablet 07/30/18 Unknown Rx traMADol [Ultram 50 MG tab] 50 mg PO Q6HR PRN #8 tablet 07/30/18 Unknown Rx Butalb/Acetamin/Caff 50-325-40 1 tab PO Q6HR PRN #8 tab 08/12/18 Unknown Rx [Fioricet] Ibuprofen [Motrin 800 MG tab] 800 mg PO Q8HR PRN #12 tablet 08/12/18 Unknown Rx traMADol [Ultram 50 MG tab] 50 mg PO Q6HR PRN #5 tablet 09/10/18 Unknown Rx Ibuprofen [Motrin] 600 mg PO Q8H PRN #20 tablet 11/17/18 Unknown Rx methOCARBAMOL [Robaxin TAB] 500 mg PO Q6H PRN #15 tablet 11/17/18 Unknown Rx ED Review of Systems ROS: Stated complaint: R SHOULDER PAIN Other details as noted in HPI Comment: All other systems reviewed and negative Physical Exam - Physical Exam Vital Signs: Vital Signs 12/02/18 07:46 Temperature 98.4 F Pulse Rate 64 Respiratory 18 Rate Blood Pressure 135/84 Blood Pressure 135/85 [Left] O2 Sat by Pulse 100 Oximetry Physical Exam: GENERAL: Alert and oriented x3, no apparent distress, Normal Gait, atraumatic. HEAD: Head is normocephalic and a-traumatic. BACK: Full range of motion, no spinal tenderness, EXTREMITIES/MUSCULOSKELETAL: No cyanosis, clubbing, rash, lesions or edema. Full ROM bilaterally of the shoulder. UE 5+ strength bilaterally, tenderness mild tenderness palpation of the scapula region on right NEUROLOGIC: The patient is cooperative with no focal neurologic deficits. SKIN: Warm and dry, No lesions, No ulceration or induration present. ED Course Vital Signs 12/02/18 07:46 Temperature 98.4 F Pulse Rate 64 Respiratory 18 Rate Blood Pressure 135/84 Blood Pressure 135/85 [Left] O2 Sat by Pulse 100 Oximetry ED Medical Decision Making - Medical Decision Making 58-year-old female presents to ED with myalgia of the shoulder ED course: Patient is ready to palpation of Dr. Crawford has been seen many times in the ED. Patient is exhibiting drug-seeking tendencies and is asking for tramadol Vital signs are normal patient is in no acute distress Discussed with patient follow-up with Dr. Crawford. Discussed the patient and take medications as prescribed. Patient has no neurological deficit. Patient is alert and oriented 3 and understands all instructions given. Critical care attestation.: If time is entered above; I have spent that time in minutes in the direct care of this critically ill patient, excluding procedure time. ED Disposition Clinical Impression: Right shoulder strain Disposition: DC- TO HOME OR SELFCARE Is pt being admited?: No Does the pt Need Aspirin: No Condition: Stable Instructions: Musculoskeletal Pain (ED), Muscle Strain (ED) Additional Instructions: Make sure to follow up with the primary care physician as discussed. Take all your medications as you've been prescribed. If you have any worsening symptoms or develop new symptoms please return to ED immediately. Referrals: DEEPTI BOB DO [Primary Care Provider] - 3-5 Days SHANNON CRAWFORD MD [Staff Physician] - 3-5 Days Forms: Work/School Release Form(ED) Time of Disposition: 09:22
[2018-12-02] MEDS ORDERED: TORADOL IM ONE (09:26)
== END 2018-12-02 09:38 | disposition home or self-care (01) ==
LOC: ED 07:38
DX: S46.911A Strain of unspecified muscle, fascia and tendon at shoulder and upper arm level, right arm, initial encounter (principal); G89.29 Other chronic pain; M54.9 Dorsalgia, unspecified; I10 Essential (primary) hypertension; K21.9 Gastro-esophageal reflux disease without esophagitis; M19.90 Unspecified osteoarthritis, unspecified site; X50.0XXA Overexertion from strenuous movement or load, initial encounter; Y93.89 Activity, other specified; Y92.89 Other specified places as the place of occurrence of the external cause; Y99.8 Other external cause status
CPT/HCPCS: 96372; 99282; J1885

== ENCOUNTER 2018-12-28 07:04 | Emergency (ER) | payer MEDICARE ==
[2018-12-28 07:19] VITALS: BP 147/94
[2018-12-28] MEDS ORDERED: TORADOL IM ONE (08:16)
--- NOTE | 2018-12-28 08:21 | Emergency Department Report ---
ED Upper Extremity Inj HPI - General Chief Complaint: Shoulder Injury Stated Complaint: RIGHT SHOULDER PAIN Time Seen by Provider: 12/28/18 08:08 Source: patient, old records reviewed (last right shoulder x-ray 10/20/2018 reviewed) Mode of arrival: Ambulatory Limitations: No Limitations - History of Present Illness Initial Comments: 58-year-old male with ongoing right shoulder pain after postop repair of injury. Patient has been here multiple times in the past with same complaints. Motrin 800 and Flexeril not helping. He states that tramadol typically does help. Patient did not complete previous physical therapy due to pain. 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 He states he is scheduled to restart physical therapy next week. No recent injury reported. Orthopedic Dr. Crawford. Complaint: Injury to:: right -: month(s) Other Extremity Injury: Shoulder: Right Other Injuries: none Handedness: right Place: work Severity scale (0 -10): 8 Improves With: immobilization Worsens With: movement of extremity Context: other (hx of clavicle fracture and rotator cuff injury) Associated Symptoms: denies other symptoms - Related Data Home Medications Medication Instructions Recorded Confirmed Last Taken Omeprazole Magnesium [PriLOSEC Otc] 20 mg PO QDAY 05/30/17 07/10/18 07/09/18 Ibuprofen [Motrin] 800 mg PO Q8HR PRN 06/30/18 07/10/18 07/03/18 Previous Rx's Medication Instructions Recorded Last Taken Type Fluticasone [Flonase] 1 spray NS QDAY #1 bottle 12/18/17 07/08/18 Rx Lisinopril/Hydrochlorothiazide 1 tab PO QDAY #40 tab 12/18/17 07/09/18 09:00 Rx [Zestoretic 20-25 mg] amLODIPine [Norvasc] 10 mg PO DAILY #40 tablet 12/18/17 07/09/18 09:00 Rx Oxycodone HCl [oxyCODONE TAB] 10 mg PO Q6H PRN #30 tablet 07/10/18 Unknown Rx Naproxen [Naprosyn] 500 mg PO TID #12 tablet 07/30/18 Unknown Rx traMADol [Ultram 50 MG tab] 50 mg PO Q6HR PRN #8 tablet 07/30/18 Unknown Rx Butalb/Acetamin/Caff 50-325-40 1 tab PO Q6HR PRN #8 tab 08/12/18 Unknown Rx [Fioricet] Ibuprofen [Motrin 800 MG tab] 800 mg PO Q8HR PRN #12 tablet 08/12/18 Unknown Rx traMADol [Ultram 50 MG tab] 50 mg PO Q6HR PRN #5 tablet 09/10/18 Unknown Rx Ibuprofen [Motrin] 600 mg PO Q8H PRN #20 tablet 11/17/18 Unknown Rx methOCARBAMOL [Robaxin TAB] 500 mg PO Q6H PRN #15 tablet 11/17/18 Unknown Rx traMADol [Ultram 50 MG tab] 50 mg PO Q6HR PRN #20 tablet 12/28/18 Unknown Rx Allergies Allergy/AdvReac Type Severity Reaction Status Date / Time No Known Allergies Allergy Verified 09/09/18 09:26 ED Review of Systems ROS: Stated complaint: RIGHT SHOULDER PAIN Other details as noted in HPI Comment: All other systems reviewed and negative ED Past Medical Hx - Past Medical History Previous Medical History?: Yes Hx Hypertension: Yes Hx CVA: No Hx Heart Attack/AMI: No Hx Congestive Heart Failure: No Hx Diabetes: No Hx Deep Vein Thrombosis: No Hx Pulmonary Embolism: No Hx GERD: Yes Hx Liver Disease: No Hx Renal Disease: No Hx Sickle Cell Disease: No Hx Arthritis: Yes Hx Seizures: No Hx Kidney Stones: No Hx Psychiatric Treatment: No Hx Asthma: No Hx COPD: No Hx Tuberculosis: No Hx Dementia: No Hx HIV: No Additional medical history: chronic back pain; chronic left leg pain. glaucoma. Right clavicle fracture - Surgical History Past Surgical History?: Yes Hx Coronary Stent: No Hx Open Heart Surgery: No Hx Pacemaker: No Hx Internal Defibrillator: No Hx Cholecystectomy: No Hx Appendectomy: No Hx Breast Surgery: No Additional Surgical History: left leg/ankle surgery,left knee surgery. cataract surgery both eyes. left total knee replacement and bone graft 08/20/16. Right rotator cuff repair. - Social History Smoking Status: Never Smoker Substance Use Type: None - Medications Home Medications: Home Medications Medication Instructions Recorded Confirmed Last Taken Type Omeprazole Magnesium [PriLOSEC Otc] 20 mg PO QDAY 05/30/17 07/10/18 07/09/18 History Fluticasone [Flonase] 1 spray NS QDAY #1 bottle 03/07/10/18 07/08/18 Rx Lisinopril/Hydrochlorothiazide 1 tab PO QDAY #40 tab 12/18/17 07/10/18 07/09/18 09:00 Rx [Zestoretic 20-25 mg] amLODIPine [Norvasc] 10 mg PO DAILY #40 tablet 12/18/17 07/10/18 07/09/18 09:00 Rx Ibuprofen [Motrin] 800 mg PO Q8HR PRN 06/30/18 07/10/18 07/03/18 History Oxycodone HCl [oxyCODONE TAB] 10 mg PO Q6H PRN #30 tablet 07/10/18 Unknown Rx Naproxen [Naprosyn] 500 mg PO TID #12 tablet 07/30/18 Unknown Rx traMADol [Ultram 50 MG tab] 50 mg PO Q6HR PRN #8 tablet 07/30/18 Unknown Rx Butalb/Acetamin/Caff 50-325-40 1 tab PO Q6HR PRN #8 tab 08/12/18 Unknown Rx [Fioricet] Ibuprofen [Motrin 800 MG tab] 800 mg PO Q8HR PRN #12 tablet 08/12/18 Unknown Rx traMADol [Ultram 50 MG tab] 50 mg PO Q6HR PRN #5 tablet 09/10/18 Unknown Rx Ibuprofen [Motrin] 600 mg PO Q8H PRN #20 tablet 11/17/18 Unknown Rx methOCARBAMOL [Robaxin TAB] 500 mg PO Q6H PRN #15 tablet 11/17/18 Unknown Rx traMADol [Ultram 50 MG tab] 50 mg PO Q6HR PRN #20 tablet 12/28/18 Unknown Rx ED Physical Exam - General Limitations: No Limitations - Other Other exam information: General: No limitations, patient is alert in no acute distress Head exam: Atraumatic, normocephalic Eyes exam: Normal appearanc ENT: Moist mucous membrane Neck exam: Normal inspection, Respiratory exam: Clear to auscultation bilateral, no wheezes, rales, crackles Cardiovascular: Normal rate and rhythm Abdomen: Soft, nondistended, and nontender, with normal bowel sounds, no rebound, or guarding Extremity: Right shoulder arthroscopic scars noted. Anterior shoulder tenderness extending into the deltoid. Limited abduction secondary to pain. 2+ distal radial pulse. No warmth or erythema at the joint Back: Normal Inspection, full range of motion, no tenderness Neurologic: Alert, oriented x3, no gross motor or sensory deficits Psychiatric: normal affect, normal mood Skin: Warm, dry, intact ED Course Vital Signs 12/28/18 07:17 Temperature 97.9 F Pulse Rate 87 Respiratory 18 Rate Blood Pressure 147/94 O2 Sat by Pulse 96 Oximetry ED Medical Decision Making - Medical Decision Making Acute exacerbation of chronic right shoulder pain previous injury. Encouraged to continue with physical therapy. Meds will be prescribed. Toradol in the ED - Differential Diagnosis fracture, contusion, sprain, arthritis Critical Care Time: No Critical care attestation.: If time is entered above; I have spent that time in minutes in the direct care of this critically ill patient, excluding procedure time. ED Disposition Clinical Impression: Chronic right shoulder pain Disposition: TO HOME OR SELFCARE Is pt being admited?: No Does the pt Need Aspirin: No Condition: Stable Instructions: Rotator Cuff Injury (ED) Additional Instructions: Take the medication as prescribed. Follow up with your doctor or the clinic/doctor provided. Return if symptoms worsen as indicated by your discharge instructions Prescriptions: traMADol [Ultram 50 MG tab] 50 mg PO Q6HR PRN #20 tablet PRN Reason: Pain Referrals: SHANNON CRAWFORD MD [Staff Physician] - 3-5 Days Time of Disposition: 08:22
== END 2018-12-28 08:31 | disposition home or self-care (01) ==
LOC: ED 07:04
DX: M25.512 Pain in left shoulder (principal); G89.29 Other chronic pain; I10 Essential (primary) hypertension; M19.90 Unspecified osteoarthritis, unspecified site; K21.9 Gastro-esophageal reflux disease without esophagitis; Z79.899 Other long term (current) drug therapy
CPT/HCPCS: 96372; 99282; J1885

== ENCOUNTER 2019-01-12 07:34 | Emergency (ER) | payer MEDICARE ==
--- NOTE | 2019-01-12 08:21 | Emergency Department Report ---
HPI - General Chief Complaint: Extremity Injury, Lower Time Seen by Provider: 01/12/19 07:55 - HPI HPI: This is a 58-year-old male presents to ED today complaining of right ankle pain service was yesterday. Patient states he was in the lawn doing some lawn. When the accidentally twisted his right ankle. Patient states that since yesterday he isn't having some throbbing-like aching pain to the ankle. He denies any falls trauma or loss of consciousness. Patient states he exhibits walk without any problems. Patient states that his right ankle is throbbing and hurts when he pushes on it ED Past Medical Hx - Past Medical History Previous Medical History?: Yes Hx Hypertension: Yes Hx CVA: No Hx Heart Attack/AMI: No Hx Congestive Heart Failure: No Hx Diabetes: No Hx Deep Vein Thrombosis: No Hx Pulmonary Embolism: No Hx GERD: Yes Hx Liver Disease: No Hx Renal Disease: No Hx Sickle Cell Disease: No Hx Arthritis: Yes Hx Seizures: No Hx Kidney Stones: No Hx Psychiatric Treatment: No Hx Asthma: No Hx COPD: No Hx Tuberculosis: No Hx Dementia: No Hx HIV: No Additional medical history: chronic back pain; chronic left leg pain. glaucoma. Right clavicle fracture - Surgical History Past Surgical History?: Yes Hx Coronary Stent: No Hx Open Heart Surgery: No Hx Pacemaker: No Hx Internal Defibrillator: No Hx Cholecystectomy: No Hx Appendectomy: No Hx Breast Surgery: No Additional Surgical History: left leg/ankle surgery,left knee surgery. cataract surgery both eyes. left total knee replacement and bone graft 08/20/16. Right rotator cuff repair. - Social History Smoking Status: Never Smoker Substance Use Type: None - Medications Home Medications: Home Medications Medication Instructions Recorded Confirmed Last Taken Type Omeprazole Magnesium [PriLOSEC Otc] 20 mg PO QDAY 05/30/17 07/10/18 07/09/18 History Fluticasone [Flonase] 1 spray NS QDAY #1 bottle 12/18/17 07/10/18 07/08/18 Rx Lisinopril/Hydrochlorothiazide 1 tab PO QDAY #40 tab 12/18/17 07/10/18 07/09/18 09:00 Rx [Zestoretic 20-25 mg] amLODIPine [Norvasc] 10 mg PO DAILY #40 tablet 12/18/17 07/10/18 07/09/18 09:00 Rx Ibuprofen [Motrin] 800 mg PO Q8HR PRN 06/30/18 07/10/18 07/03/18 History Oxycodone HCl [oxyCODONE TAB] 10 mg PO Q6H PRN #30 tablet 07/10/18 Unknown Rx Naproxen [Naprosyn] 500 mg PO TID #12 tablet 07/30/18 Unknown Rx traMADol [Ultram 50 MG tab] 50 mg PO Q6HR PRN #8 tablet 07/30/18 Unknown Rx Butalb/Acetamin/Caff 50-325-40 1 tab PO Q6HR PRN #8 tab 08/12/18 Unknown Rx [Fioricet] Ibuprofen [Motrin 800 MG tab] 800 mg PO Q8HR PRN #12 tablet 08/12/18 Unknown Rx traMADol [Ultram 50 MG tab] 50 mg PO Q6HR PRN #5 tablet 09/10/18 Unknown Rx Ibuprofen [Motrin] 600 mg PO Q8H PRN #20 tablet 11/17/18 Unknown Rx methOCARBAMOL [Robaxin TAB] 500 mg PO Q6H PRN #15 tablet 11/17/18 Unknown Rx traMADol [Ultram 50 MG tab] 50 mg PO Q6HR PRN #20 tablet 12/28/[address] (Nf) 50 mg PO BID #20 tablet.dr 01/12/19 Unknown Rx Tizanidine HCl [Zanaflex] 4 mg PO DAILY #10 capsule 01/12/19 Unknown Rx ED Review of Systems ROS: Stated complaint: (R) ANKLE PAIN Other details as noted in HPI Comment: All other systems reviewed and negative Physical Exam - Physical Exam Vital Signs: Vital Signs 01/12/19 07:35 Temperature 97.6 F Pulse Rate 99 H Respiratory 18 Rate Blood Pressure 140/92 O2 Sat by Pulse 98 Oximetry Physical Exam: GENERAL: Alert and oriented x3, no apparent distress, Normal Gait, atraumatic. HEAD: Head is normocephalic and a-traumatic. NECK: Supple. Non edematous, No lymphadenopathy or thyromegaly. No C-spine tenderness, full range of motion EXTREMITIES/MUSCULOSKELETAL: No cyanosis, clubbing, rash, lesions or edema. Full ROM bilaterally. Needle Pulses 2+ bilaterally. LE 5+ strength bilaterally, she number to apply pressure to his right foot without any problems. Right ankle mildly tender to palpation, no swelling noted NEUROLOGIC: The patient is cooperative with no focal neurologic deficits. SKIN: Warm and dry, No lesions, No ulceration or induration present. ED Course Vital Signs 01/12/19 07:35 Temperature 97.6 F Pulse Rate 99 H Respiratory 18 Rate Blood Pressure 140/92 O2 Sat by Pulse 98 Oximetry ED Medical Decision Making - Medical Decision Making 58-year-old female presents to ED with right ankle strain ED course: Patient received Dash wrap in the ED Vital signs are normal patient is in no acute distress. Discussed with the patient's wrist to his ankle and keep it elevated for the next couple of days. Discussed with patient follow-up with primary care physician. Discussed the patient and take medications as prescribed. Patient has no neurological deficit. Patient is alert and oriented 3 and understands all instructions given. Critical care attestation.: If time is entered above; I have spent that time in minutes in the direct care of this critically ill patient, excluding procedure time. ED Disposition Clinical Impression: Right ankle strain Disposition: DC-01 TO HOME OR SELFCARE Is pt being admited?: No Does the pt Need Aspirin: No Condition: Stable Instructions: Muscle Strain (ED), Ankle Exercises (GEN) Additional Instructions: Make sure to follow up with the primary care physician as discussed. Take all your medications as you've been prescribed. If you have any worsening symptoms or develop new symptoms please return to ED immediately. Prescriptions: Diclofenac Dr (Nf) 50 mg PO BID #20 tablet. Tizanidine HCl [Zanaflex] 4 mg PO DAILY #10 capsule Referrals: CLAUDIA LEES MD [Primary Care Provider] - 3-5 Days Forms: Work/School Release Form(ED) Time of Disposition: 08:29
[2019-01-12 20:24] VITALS: BP 140/92
== END 2019-01-12 09:11 | disposition home or self-care (01) ==
LOC: ED 07:34
DX: S96.911A Strain of unspecified muscle and tendon at ankle and foot level, right foot, initial encounter (principal); I10 Essential (primary) hypertension; M19.90 Unspecified osteoarthritis, unspecified site; K21.9 Gastro-esophageal reflux disease without esophagitis; M54.5 Low back pain; G89.29 Other chronic pain; Z96.652 Presence of left artificial knee joint; Z98.890 Other specified postprocedural states; X50.1XXA Overexertion from prolonged static or awkward postures, initial encounter; Y93.89 Activity, other specified; Y92.89 Other specified places as the place of occurrence of the external cause; Y99.8 Other external cause status
CPT/HCPCS: 99283

== ENCOUNTER 2019-03-03 14:57 | Emergency (ER) | payer MEDICARE ==
--- NOTE | 2019-03-03 15:12 | Emergency Department Report ---
Blank Doc - Documentation Documentation: 58 Y/O MALE C/O OF 3 DAY HISTORY OF WEAKNESS, SOB, DIZZINESS,A ND FREQENT URIN ATION.
--- NOTE | 2019-03-03 15:41 | XRay Report ---
Chest 2 views: Compared to 01/08/18. History: Shortness of breath. Findings: Normal cardiomediastinal silhouette. Trachea is midline. No consolidation, pneumothorax or pleural effusion. Impression: No acute cardiopulmonary findings
[2019-03-03 15:54] LABS: Hematocrit 47.4 % (35.5-45.6); Hemoglobin 15.8 gm/dl (11.8-15.2); Mean Corpuscular HGB Conc 33 % (32-34); Mean Corpuscular Volume 86 fl (84-94); Platelet Count 346 K/mm3 (140-440); Red Blood Count 5.54 M/mm3 (3.65-5.03); Red Cell Distribution Width 12.7 % (13.2-15.2)
[2019-03-03 15:55] LABS: Bilirubin,Urine NEG (Negative); Blood,Urine NEG (Negative); Color,Urine Yellow (Yellow); Mucus,Urine FEW /HPF; Protein,Urine <15 mg/dL mg/dL (Negative); Urobilinogen,Urine < 2.0 mg/dL (<2.0)
[2019-03-03 16:29] LABS: Alanine Aminotransferase 30 units/L (7-56); Albumin 4.1 g/dL (3.9-5); BUN/Creatinine Ratio 18; Blood Urea Nitrogen 21 mg/dL (9-20); Calcium 10.4 mg/dL (8.4-10.2); Hemolysis Index 16
[2019-03-03] MEDS ORDERED: ULTRAM PO ONE (16:53)
[2019-03-03] MEDS ORDERED: HumuLIN R IV ONE (16:53)
[2019-03-03] MEDS ORDERED: NACL 0.9% 1000 ML 1,000 ML IV ONE ×3 (16:53)
[2019-03-03 16:56] LABS: Basophils % (Manual) 0 % (0.0-1.8); RBC Morphology Normal; Total Cells Counted 100
--- NOTE | 2019-03-03 17:10 | Emergency Department Report ---
ED General Adult HPI - General Chief complaint: Weakness Stated complaint: HBP 220/120 Time Seen by Provider: 03/03/19 15:10 Source: patient Mode of arrival: Ambulatory Limitations: No Limitations - History of Present Illness Initial comments: Patient is a 58-year-old male past medical history of high blood pressure who is here stating that he has felt weak the last several days. Patient to give blood pressure at home it was 210/160. Patient states he took his Zestoretic and Norvasc prior to arrival. Patient states weakness is ac companied with some urinary frequency with no dysuria. 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 Patient denies any chest pain shortness of breath fevers chills cough, congestion nausea vomiting at this time. - Related Data Home Medications Medication Instructions Recorded Confirmed Last Taken Omeprazole Magnesium [PriLOSEC Otc] 20 mg PO QDAY 05/30/17 07/10/18 07/09/18 Ibuprofen [Motrin] 800 mg PO Q8HR PRN 06/30/18 07/10/18 07/03/18 Previous Rx's Medication Instructions Recorded Last Taken Type Fluticasone [Flonase] 1 spray NS QDAY #1 bottle 12/18/17 07/08/18 Rx Lisinopril/Hydrochlorothiazide 1 tab PO QDAY #40 tab 12/18/17 07/09/18 09:00 Rx [Zestoretic 20-25 mg] amLODIPine [Norvasc] 10 mg PO DAILY #40 tablet 12/18/17 07/09/18 09:00 Rx Oxycodone HCl [oxyCODONE TAB] 10 mg PO Q6H PRN #30 tablet 07/10/18 Unknown Rx Naproxen [Naprosyn] 500 mg PO TID #12 tablet 07/30/18 Unknown Rx traMADol [Ultram 50 MG tab] 50 mg PO Q6HR PRN #8 tablet 07/30/18 Unknown Rx Butalb/Acetamin/Caff 50-325-40 1 tab PO Q6HR PRN #8 tab 08/12/18 Unknown Rx [Fioricet] Ibuprofen [Motrin 800 MG tab] 800 mg PO Q8HR PRN #12 tablet 08/12/18 Unknown Rx traMADol [Ultram 50 MG tab] 50 mg PO Q6HR PRN #5 tablet 09/10/18 Unknown Rx Ibuprofen [Motrin] 600 mg PO Q8H PRN #20 tablet 11/17/18 Unknown Rx methOCARBAMOL [Robaxin TAB] 500 mg PO Q6H PRN #15 tablet 11/17/18 Unknown Rx traMADol [Ultram 50 MG tab] 50 mg PO Q6HR PRN #20 tablet 12/28/[address] (Nf) 50 mg PO BID #20 tablet.dr 01/12/19 Unknown Rx Tizanidine HCl [Zanaflex] 4 mg PO DAILY #10 capsule 01/12/19 Unknown Rx Ibuprofen [Motrin 800 MG tab] 800 mg PO Q8HR PRN #10 tablet 03/03/19 Unknown Rx metFORMIN [Glucophage] 500 mg PO BID #60 tablet 03/03/19 Unknown Rx Allergies Allergy/AdvReac Type Severity Reaction Status Date / Time No Known Allergies Allergy Verified 03/03/19 15:00 ED Review of Systems ROS: Stated complaint: HBP 220/120 Other details as noted in HPI Comment: All other systems reviewed and negative Musculoskeletal: other (chronic left knee pain ) ED Past Medical Hx - Past Medical History Hx Hypertension: Yes Hx CVA: No Hx Heart Attack/AMI: No Hx Congestive Heart Failure: No Hx Diabetes: No Hx Deep Vein Thrombosis: No Hx Pulmonary Embolism: No Hx GERD: Yes Hx Liver Disease: No Hx Renal Disease: No Hx Sickle Cell Disease: No Hx Arthritis: Yes Hx Seizures: No Hx Kidney Stones: No Hx Psychiatric Treatment: No Hx Asthma: No Hx COPD: No Hx Tuberculosis: No Hx Dementia: No Hx HIV: No Additional medical history: chronic back pain; chronic left leg pain. glaucoma. Right clavicle fracture - Surgical History Hx Coronary Stent: No Hx Open Heart Surgery: No Hx Pacemaker: No Hx Internal Defibrillator: No Hx Cholecystectomy: No Hx Appendectomy: No Hx Breast Surgery: No Additional Surgical History: left leg/ankle surgery,left knee surgery. cataract surgery both eyes. left total knee replacement and bone graft 08/20/16. Right rotator cuff repair. - Social History Smoking Status: Never Smoker Substance Use Type: None - Medications Home Medications: Home Medications Medication Instructions Recorded Confirmed Last Taken Type Omeprazole Magnesium [PriLOSEC Otc] 20 mg PO QDAY 05/30/17 07/10/18 07/09/18 History Fluticasone [Flonase] 1 spray NS QDAY #1 bottle 12/18/17 07/10/18 07/08/18 Rx Lisinopril/Hydrochlorothiazide 1 tab PO QDAY #40 tab 12/18/17 07/10/18 07/09/18 09:00 Rx [Zestoretic 20-25 mg] amLODIPine [Norvasc] 10 mg PO DAILY #40 tablet 12/18/17 07/10/18 07/09/18 09:00 Rx Ibuprofen [Motrin] 800 mg PO Q8HR PRN 06/30/18 07/10/18 07/03/18 History Oxycodone HCl [oxyCODONE TAB] 10 mg PO Q6H PRN #30 tablet 07/10/18 Unknown Rx Naproxen [Naprosyn] 500 mg PO TID #12 tablet 07/30/18 Unknown Rx traMADol [Ultram 50 MG tab] 50 mg PO Q6HR PRN #8 tablet 07/30/18 Unknown Rx Butalb/Acetamin/Caff 50-325-40 1 tab PO Q6HR PRN #8 tab 08/12/18 Unknown Rx [Fioricet] Ibuprofen [Motrin 800 MG tab] 800 mg PO Q8HR PRN #12 tablet 08/12/18 Unknown Rx traMADol [Ultram 50 MG tab] 50 mg PO Q6HR PRN #5 tablet 09/10/18 Unknown Rx Ibuprofen [Motrin] 600 mg PO Q8H PRN #20 tablet 11/17/18 Unknown Rx methOCARBAMOL [Robaxin TAB] 500 mg PO Q6H PRN #15 tablet 11/17/18 Unknown Rx traMADol [Ultram 50 MG tab] 50 mg PO Q6HR PRN #20 tablet 12/28/[address] (Nf) 50 mg PO BID #20 tablet.dr 01/12/19 Unknown Rx Tizanidine HCl [Zanaflex] 4 mg PO DAILY #10 capsule 01/12/19 Unknown Rx Ibuprofen [Motrin 800 MG tab] 800 mg PO Q8HR PRN #10 tablet 03/03/19 Unknown Rx metFORMIN [Glucophage] 500 mg PO BID #60 tablet 03/03/19 Unknown Rx ED Physical Exam - General Limitations: No Limitations General appearance: alert, in no apparent distress - Head Head exam: Present: atraumatic, normocephalic - Eye Eye exam: Present: normal appearance, PERRL, EOMI - ENT ENT exam: Present: mucous membranes moist - Neck Neck exam: Present: normal inspection - Respiratory Respiratory exam: Present: normal lung sounds bilaterally. Absent: respiratory distress, wheezes, rales, rhonchi - Cardiovascular Cardiovascular Exam: Present: regular rate, normal rhythm, normal heart sounds. Absent: systolic murmur, diastolic murmur, rubs, gallop - GI/Abdominal GI/Abdominal exam: Present: soft, normal bowel sounds. Absent: distended, tenderness, guarding, rebound - Rectal Rectal exam: Present: deferred - Extremities Exam Extremities exam: Present: normal inspection - Back Exam Back exam: Present: normal inspection - Neurological Exam Neurological exam: Present: alert, oriented X3 - Psychiatric Psychiatric exam: Present: normal affect, normal mood - Skin Skin exam: Present: warm, dry, intact, normal color. Absent: rash ED Course Vital Signs 03/03/19 15:05 Temperature 98.7 F Pulse Rate 77 Respiratory 16 Rate Blood Pressure 121/77 [Left] O2 Sat by Pulse 97 Oximetry ED Medical Decision Making - Lab Data Result diagrams: 03/03/19 15:16 03/03/19 15:16 Lab Results 03/03/19 03/03/19 03/03/19 Range/Units 15:16 15:16 Unknown WBC 7.3 (4.5-11.0) K/mm3 RBC 5.54 H (3.65-5.03) M/mm3 Hgb 15.8 H (11.8-15.2) gm/dl Hct 47.4 H (35.5-45.6) % MCV 86 (84-94) fl MCH 29 (28-32) pg MCHC 33 (32-34) % RDW 12.7 L (13.2-15.2) % Plt Count 346 (140-440) K/mm3 Add Manual Diff Complete Total Counted 100 Seg Neuts % (Manual) 55.0 (40.0-70.0) % Band Neutrophils % 0 % Lymphocytes % (Manual) 42.0 H (13.4-35.0) % Reactive Lymphs % (Man) 0 % Monocytes % (Manual) 1.0 (0.0-7.3) % Eosinophils % (Manual) 2.0 (0.0-4.3) % Basophils % (Manual) 0 (0.0-1.8) % Metamyelocytes % 0 % Myelocytes % 0 % Promyelocytes % 0 % Blast Cells % 0 % Nucleated RBC % Not Reportable Seg Neutrophils # Man 4.0 (1.8-7.7) K/mm3 Band Neutrophils # 0.0 K/mm3 Lymphocytes # (Manual) 3.1 (1.2-5.4) K/mm3 Abs React Lymphs (Man) 0.0 K/mm3 Monocytes # (Manual) 0.1 (0.0-0.8) K/mm3 Eosinophils # (Manual) 0.1 (0.0-0.4) K/mm3 Basophils # (Manual) 0.0 (0.0-0.1) K/mm3 Metamyelocytes # 0.0 K/mm3 Myelocytes # 0.0 K/mm3 Promyelocytes # 0.0 K/mm3 Blast Cells # 0.0 K/mm3 WBC Morphology Not Reportable Hypersegmented Neuts Not Reportable Hyposegmented Neuts Not Reportable Hypogranular Neuts Not Reportable Smudge Cells Not Reportable Toxic Granulation Not Reportable Toxic Vacuolation Not Reportable Dohle Bodies Not Reportable Pelger-Huet Anomaly Not Reportable Tessa Rods Not Reportable Platelet Estimate Not Reportable Clumped Platelets Not Reportable Plt Clumps, EDTA Not Reportable Large Platelets Not Reportable Giant Platelets Not Reportable Platelet Satelliting Not Reportable Plt Morphology Comment Not Reportable RBC Morphology Normal Dimorphic RBCs Not Reportable Polychromasia Not Reportable Hypochromasia Not Reportable Poikilocytosis Not Reportable Anisocytosis Not Reportable Microcytosis Not Reportable Macrocytosis Not Reportable Spherocytes Not Reportable Pappenheimer Bodies Not Reportable Sickle Cells Not Reportable Target Cells Not Reportable Tear Drop Cells Not Reportable Ovalocytes Not Reportable Helmet Cells Not Reportable [place] Bodies Not Reportable Crane Rings Not Reportable [place] Cells Not Reportable Bite Cells Not Reportable Crenated Cell Not Reportable Elliptocytes Not Reportable Acanthocytes (Spur) Not Reportable Rouleaux Not Reportable Hemoglobin C Crystals Not Reportable Schistocytes Not Reportable Malaria parasites Not Reportable Mata Bodies Not Reportable Hem Pathologist Commnt No Sodium 129 L (137-145) mmol/L Potassium 4.1 (3.6-5.0) mmol/L Chloride 90.0 L (98-107) mmol/L Carbon Dioxide 23 (22-30) mmol/L Anion Gap 20 mmol/L BUN 21 H (9-20) mg/dL Creatinine 1.2 (0.8-1.5) mg/dL Estimated GFR > 60 ml/min BUN/Creatinine Ratio 18 % Glucose 559 H* (75-100) mg/dL Calcium 10.4 H (8.4-10.2) mg/dL Total Bilirubin 0.50 (0.1-1.2) mg/dL AST 19 (5-40) units/L ALT 30 (7-56) units/L Alkaline Phosphatase 150 H (35-129) units/L Total Protein 8.3 H (6.3-8.2) g/dL Albumin 4.1 (3.9-5) g/dL Albumin/Globulin Ratio 1.0 % Urine Color Yellow (Yellow) Urine Turbidity Clear (Clear) Urine pH 5.0 (5.0-7.0) Ur Specific [place] 1.029 (1.003-1.030) Urine Protein <15 mg/dl (Negative) mg/dL Urine Glucose (UA) >=500 (Negative) mg/dL Urine Ketones Neg (Negative) mg/dL Urine Blood Neg (Negative) Urine Nitrite Neg (Negative) Urine Bilirubin Neg (Negative) Urine Urobilinogen < 2.0 (<2.0) mg/dL Ur Leukocyte Esterase Neg (Negative) Urine WBC (Auto) 1.0 (0.0-6.0) /HPF Urine RBC (Auto) 2.0 (0.0-6.0) /HPF Urine Mucus Few /HPF - Medical Decision Making Patient is a 58-year-old -[place] male who is presenting with what he believed was elevated blood pressure causing weakness. Patient's blood pressure is within normal limits here in the emergency department. Patient does have a elevated glucose. Patient is ketone negative. Also looking at his electrolyte patient does have some mild dehydration. Patient was given normal saline boluses as well as insulin. Patient be started on metformin. Patient's given pain meds for his chronic left knee pain. Patient discharged home with follow- up with his primary care at [facility]. Critical Care Time: Yes (30) Critical care attestation.: If time is entered above; I have spent that time in minutes in the direct care of this critically ill patient, excluding procedure time. ED Disposition Clinical Impression: Hyperglycemia, Hyponatremia, Dehydration Chronic knee pain Qualifiers: Laterality: left Qualified Code(s): M25.562 - Pain in left knee; G89.29 - Other chronic pain Disposition: TO HOME OR SELFCARE Is pt being admited?: No Does the pt Need Aspirin: No Condition: Stable Instructions: How to Check Your Blood Sugar (ED), Diabetes Mellitus Type 2 in Adults (ED) Referrals: CLAUDIA LEES MD [Primary Care Provider] - 3-5 Days Time of Disposition: 17:10
[2019-03-03 20:01] VITALS: BP 172/101
== END 2019-03-03 20:01 | disposition home or self-care (01) ==
LOC: ED 14:57
DX: E86.0 Dehydration (principal); R73.9 Hyperglycemia, unspecified; E87.1 Hypo-osmolality and hyponatremia; M25.562 Pain in left knee; G89.29 Other chronic pain; I10 Essential (primary) hypertension; K21.9 Gastro-esophageal reflux disease without esophagitis; M19.90 Unspecified osteoarthritis, unspecified site; Z96.652 Presence of left artificial knee joint; Z98.42 Cataract extraction status, left eye; Z98.41 Cataract extraction status, right eye; Z79.899 Other long term (current) drug therapy
CPT/HCPCS: 36415; 71046; 80053; 81001; 82962; 85007; 85025; 96361; 96374; 99284; J7030; J1815

== ENCOUNTER 2019-03-19 07:52 | Outpatient (CLI) | payer MEDICARE ==
--- NOTE | 2019-03-19 08:16 | XRay Report ---
RIGHT SHOULDER, 3 VIEWS: HISTORY: Sprain of right rotator cuff capsule, shoulder pain. Compared to 10/20/18. Previous rotator cuff repair changes are again noted. The fixation screws appear unchanged in position. There is normal alignment at the glenohumeral joint. 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 Mild degenerative changes at the right a.c. joint. The soft tissues are unremarkable. IMPRESSION: No change is appreciated since 10/20/18.
== END 2019-03-19 07:53 | disposition home or self-care (01) ==
LOC: XRAY 07:52
PROVIDERS: ATTEND Orthopaedic Surgery
DX: M19.011 Primary osteoarthritis, right shoulder (principal); I10 Essential (primary) hypertension; K21.9 Gastro-esophageal reflux disease without esophagitis

== ENCOUNTER 2019-03-31 09:30 | Emergency (ER) | payer MEDICARE ==
[2019-03-31 09:58] VITALS: BP 122/64
--- NOTE | 2019-03-31 10:28 | XRay Report ---
2 views of the left shoulder INDICATION / CLINICAL INFORMATION: Left shoulder pain. COMPARISON: None available. FINDINGS: BONES/JOINT(S): No acute fracture or subluxation. Mild AC joint DJD. Normal bone mineralization. SOFT TISSUES: No significant abnormality. ADDITIONAL FINDINGS: None. Signer Name: Cesar Fish MD Signed: 03/31/2019 9:23 AM Workstation Name: [email or web address]
[2019-03-31] MEDS ORDERED: NAPROSYN PO NR (11:09)
[2019-03-31] MEDS ORDERED: FLEXERIL PO ONE (11:09)
--- NOTE | 2019-03-31 11:14 | Emergency Department Report ---
Upper Extremity - HPI Chief Complaint: Extremity Injury, Upper Stated Complaint: L SHOULDER PAIN Time Seen by Provider: 03/31/19 10:21 Other History: Patient is a 58-year-old male who presents to emergency room with complaints of left shoulder pain that began 2-3 days ago. He denies any fall, injury, trauma. He has never injured this shoulder previously. He states it began after doing heavy lifting at work. 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 no allergies to medications. past medical history of hypertension. ED Review of Systems ROS: Stated complaint: L SHOULDER PAIN Other details as noted in HPI Comment: All other systems reviewed and negative ED Past Medical Hx - Past Medical History Hx Hypertension: Yes Hx CVA: No Hx Heart Attack/AMI: No Hx Congestive Heart Failure: No Hx Diabetes: No Hx Deep Vein Thrombosis: No Hx Pulmonary Embolism: No Hx GERD: Yes Hx Liver Disease: No Hx Renal Disease: No Hx Sickle Cell Disease: No Hx Arthritis: Yes Hx Seizures: No Hx Kidney Stones: No Hx Psychiatric Treatment: No Hx Asthma: No Hx COPD: No Hx Tuberculosis: No Hx Dementia: No Hx HIV: No Additional medical history: chronic back pain; chronic left leg pain. glaucoma. Right clavicle fracture - Surgical History Past Surgical History?: Yes Hx Coronary Stent: No Hx Open Heart Surgery: No Hx Pacemaker: No Hx Internal Defibrillator: No Hx Cholecystectomy: No Hx Appendectomy: No Hx Breast Surgery: No Additional Surgical History: left leg/ankle surgery,left knee surgery. cataract surgery both eyes. left total knee replacement and bone graft 08/20/16. Right rotator cuff repair. - Social History Smoking Status: Never Smoker Substance Use Type: None - Medications Home Medications: Home Medications Medication Instructions Recorded Confirmed Last Taken Type Omeprazole Magnesium [PriLOSEC Otc] 20 mg PO QDAY 05/30/17 07/10/18 07/09/18 History Fluticasone [Flonase] 1 spray NS QDAY #1 bottle 12/18/17 07/10/18 07/08/18 Rx Lisinopril/Hydrochlorothiazide 1 tab PO QDAY #40 tab 12/18/17 07/10/18 07/09/18 09:00 Rx [Zestoretic 20-25 mg] amLODIPine [Norvasc] 10 mg PO DAILY #40 tablet 12/18/17 07/10/18 07/09/18 09:00 Rx Ibuprofen [Motrin] 800 mg PO Q8HR PRN 06/30/18 07/10/18 07/03/18 History Oxycodone HCl [oxyCODONE TAB] 10 mg PO Q6H PRN #30 tablet 07/10/18 Unknown Rx traMADol [Ultram 50 MG tab] 50 mg PO Q6HR PRN #8 tablet 07/30/18 Unknown Rx Butalb/Acetamin/Caff 50-325-40 1 tab PO Q6HR PRN #8 tab 08/12/18 Unknown Rx [Fioricet] Ibuprofen [Motrin 800 MG tab] 800 mg PO Q8HR PRN #12 tablet 08/12/18 Unknown Rx traMADol [Ultram 50 MG tab] 50 mg PO Q6HR PRN #5 tablet 09/10/18 Unknown Rx Ibuprofen [Motrin] 600 mg PO Q8H PRN #20 tablet 11/17/18 Unknown Rx methOCARBAMOL [Robaxin TAB] 500 mg PO Q6H PRN #15 tablet 11/17/18 Unknown Rx traMADol [Ultram 50 MG tab] 50 mg PO Q6HR PRN #20 tablet 12/28/[address] (Nf) 50 mg PO BID #20 tablet.dr 01/12/19 Unknown Rx Tizanidine HCl [Zanaflex] 4 mg PO DAILY #10 capsule 01/12/19 Unknown Rx Ibuprofen [Motrin 800 MG tab] 800 mg PO Q8HR PRN #10 tablet 03/03/19 Unknown Rx metFORMIN [Glucophage] 500 mg PO BID #60 tablet 03/03/19 Unknown Rx Naproxen [Naprosyn] 500 mg PO TID PRN #14 tablet 03/31/19 Unknown Rx Upper Extremity Exam - Exam General: Vital signs noted. No distress. Alert and acting appropriately. Shoulder Exam: Yes Normal Range of Motion in Shoulder (discomfort upon flexion and internal rotation), No Shoulder Tenderness (no point TTP of the left shoulder, no sulcus sign, clavicles are equal, no obvious joint laxity), No Clavicle Tenderness, No Shoulder Deformity, No AC Joint Tenderness Arm Exam: No Arm/Humerus Tenderness, No Arm Deformity Elbow: Yes Normal Range of Motion in Elbow, No Elbow Tenderness, No Elbow Deformity Forearm: No Forearm Tenderness, No Forearm Deformity, No Pain with Pronation, No Pain with Supination Wrist: Yes Normal ROM in Wrist, No Wrist Tenderness, No Wrist Deformity, No Snuffbox Tenderness, No Pain with Axial Thumb Compression Hand: Yes Normal ROM in Digit(s), No Hand Tenderness, No Hand Deformity, No Digit Tenderness, No Digit(s) Deformity, No Tendon Dysfunction CMS Exam: Yes Normal Distal Pulses, Yes Normal Capillary Refill, Yes Normal Distal Sensation, No Broken Skin ED Course Vital Signs 03/31/19 09:56 Temperature 97.9 F Pulse Rate 81 Respiratory 16 Rate Blood Pressure 122/64 [Right] O2 Sat by Pulse 100 Oximetry ED Medical Decision Making - Lab Data Vital Signs 03/31/19 09:56 Temperature 97.9 F Pulse Rate 81 Respiratory 16 Rate Blood Pressure 122/64 [Right] O2 Sat by Pulse 100 Oximetry - Radiology Data Radiology results: report reviewed cc: CHAUNCEY ARREOLA MD Fluoro Time In Minutes: 2 views of the left shoulder INDICATION / CLINICAL INFORMATION: Left shoulder pain. COMPARISON: None available. FINDINGS: BONES/JOINT(S): No acute fracture or subluxation. Mild AC joint DJD. Normal bone mineralization. SOFT TISSUES: No significant abnormality. ADDITIONAL FINDINGS: None. Signer Name: Cesar Fish MD Signed: 03/31/2019 9:23 AM Workstation Name: [id number] Transcribed By: REF Dictated By: CATHERINE BARKSDALE MD Electronically Authenticated By: CATHERINE BARKSDALE MD Signed Date/Time: 03/31/19 0923 - Medical Decision Making Patient is a 58-year-old male who presents to emergency room with complaints of left shoulder pain that began 2-3 days ago. He denies any fall, injury, trauma. He has never injured this shoulder previously. He states it began after doing heavy lifting at work. 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 no allergies to medications. past medical history of hypertension. vitals are normal. on exam: no point TTP of the left shoulder, no sulcus sign, clavicles are equal, no obvious joint laxity, discomfort upon flexion and internal rotation with FROM of the left shoulder, neurovascularly intact. XR of the shoulder: No acute fracture or subluxation. Mild AC joint DJD. Normal bone mineralization. pt given prescription for naproxen. advised to please take medication as prescribed as needed. May use ice, rest, heat, elevation. Follow up with a primary care doctor in the next 2-3 days. Return to the emergency room for any new or worsening symptoms. - Differential Diagnosis strain, sprain, fx, dislocation, arthritis Critical care attestation.: If time is entered above; I have spent that time in minutes in the direct care of this critically ill patient, excluding procedure time. ED Disposition Clinical Impression: Left shoulder pain Qualifiers: Chronicity: acute Qualified Code(s): M25.512 - Pain in left shoulder Disposition: DC- TO HOME OR SELFCARE Is pt being admited?: No Does the pt Need Aspirin: No Condition: Stable Instructions: Osteoarthritis (ED), RICE Therapy (ED) Additional Instructions: Please take medication as prescribed as needed. May use ice, rest, heat, elevation. Follow up with a primary care doctor in the next 2-3 days. Return to the emergency room for any new or worsening symptoms. Prescriptions: Naproxen [Naprosyn] 500 mg PO TID PRN #14 tablet PRN Reason: Pain, Moderate (4-6) Referrals: ZOHAIB ANGEL MD [Primary Care Provider] - 2-3 Days Time of Disposition: 11:14 Print Language: SPANISH
== END 2019-03-31 11:42 | disposition home or self-care (01) ==
LOC: ED 09:30
DX: M25.512 Pain in left shoulder (principal); I10 Essential (primary) hypertension; K21.9 Gastro-esophageal reflux disease without esophagitis; M19.90 Unspecified osteoarthritis, unspecified site; M54.9 Dorsalgia, unspecified; G89.29 Other chronic pain; M79.605 Pain in left leg; Z96.652 Presence of left artificial knee joint; Z79.899 Other long term (current) drug therapy; Z79.1 Long term (current) use of non-steroidal anti-inflammatories (NSAID); X50.0XXA Overexertion from strenuous movement or load, initial encounter; Y93.89 Activity, other specified; Y92.69 Other specified industrial and construction area as the place of occurrence of the external cause; Y99.8 Other external cause status
CPT/HCPCS: 99283

== ENCOUNTER 2019-08-19 15:54 | Emergency (ER) | payer MEDICARE ==
[2019-08-19 16:38] VITALS: BP 128/73
--- NOTE | 2019-08-19 16:38 | Event Note ---
ED Screening Note Date of service: 08/19/19 Time: 16:36 ED Screening Note: 58 y o male presents with right foot nail puncture wound x 2 days cc of pain ans some swelling no relief with soaking and neosporin This initial assessment/diagnostic orders/clinical plan/treatment(s) is/are subject to change based on patients health status, clinical progression and re- assessment by fellow clinical providers in the ED. Further treatment and workup at subsequent clinical providers discretion. Patient/guardian urged not to elope from the ED as their condition may be serious if not clinically assessed and managed. Initial orders include: acc eval
[2019-08-19] MEDS ORDERED: LIDOCAINE-MPF (1%) 10 MG/1 ML VIAL 5 ML INFILTRATI ONE (17:23)
[2019-08-19] MEDS ORDERED: TETANUS,DIPH,PERTUSS(ACELL) VACCINE 0.5 ML SYRINGE IM ONE (17:23)
--- NOTE | 2019-08-19 17:57 | XRay Report ---
Right foot, 3 views INDICATION: Puncture wound FINDINGS: There is no fracture or foreign body seen. There are moderate arthritic changes in the mid foot. Spurring from the distal phalanx of the great toe is seen as well. No significant abnormality. Signer Name: João Gomez MD Signed: 08/19/2019 5:53 PM Workstation Name: [id number]
--- NOTE | 2019-08-19 18:23 | Emergency Department Report ---
ED Lower Extremity HPI - General Chief Complaint: Extremity Injury, Lower Stated Complaint: PAIN ON (R)FOOT Time Seen by Provider: 08/19/19 17:26 Source: patient Mode of arrival: Ambulatory Limitations: No Limitations - History of Present Illness Initial Comments: 58-year-old Afro-[place] male with past history of diabetes since emergency department complaining of pain to his right foot which was occurred after stepping on a nail about 3 days ago. She denies any the wound at home with [id number]-[id number] anti-microbrewery washed and Neosporin. Continue throbbing pain and some swelling but no fever discharge reinjury. Reports no numbness or tingling no calf pain no fevers, chills, sweats. Injury: Foot: Right Place: home Severity: mild Improves With: nothing Worsens With: nothing - Related Data Home Medications Medication Instructions Recorded Confirmed Last Taken Omeprazole Magnesium [PriLOSEC Otc] 20 mg PO QDAY 05/30/17 07/10/18 07/09/18 Ibuprofen [Motrin] 800 mg PO Q8HR PRN 06/30/18 07/10/18 07/03/18 Previous Rx's Medication Instructions Recorded Last Taken Type Fluticasone [Flonase] 1 spray NS QDAY #1 bottle 12/18/17 07/08/18 Rx Lisinopril/Hydrochlorothiazide 1 tab PO QDAY #40 tab 12/18/17 07/09/18 09:00 Rx [Zestoretic 20-25 mg] amLODIPine 10 mg PO DAILY #40 tablet 12/18/17 07/09/18 09:00 Rx Oxycodone HCl [oxyCODONE TAB] 10 mg PO Q6H PRN #30 tablet 07/10/18 Unknown Rx traMADoL [Ultram 50 MG tab] 50 mg PO Q6HR PRN #8 tablet 07/30/18 Unknown Rx Butalb/Acetamin/Caff 50-325-40 1 tab PO Q6HR PRN #8 tab 08/12/18 Unknown Rx [Fioricet] Ibuprofen [Motrin 800 MG tab] 800 mg PO Q8HR PRN #12 tablet 08/12/18 Unknown Rx traMADoL [Ultram 50 MG tab] 50 mg PO Q6HR PRN #5 tablet 09/10/18 Unknown Rx Ibuprofen [Motrin] 600 mg PO Q8H PRN #20 tablet 11/17/18 Unknown Rx methOCARBAMOL [Robaxin TAB] 500 mg PO Q6H PRN #15 tablet 11/17/18 Unknown Rx traMADoL [Ultram 50 MG tab] 50 mg PO Q6HR PRN #20 tablet 12/28/[address] (Nf) 50 mg PO BID #20 tablet.dr 01/12/19 Unknown Rx Tizanidine HCl [Zanaflex] 4 mg PO DAILY #10 capsule 01/12/19 Unknown Rx Ibuprofen [Motrin 800 MG tab] 800 mg PO Q8HR PRN #10 tablet 03/03/19 Unknown Rx metFORMIN [Glucophage] 500 mg PO BID #60 tablet 03/03/19 Unknown Rx Naproxen [Naprosyn] 500 mg PO TID PRN #14 tablet 03/31/19 Unknown Rx Chlorhexidine Gluconate [Hibiclens] 10 ml TP BID #240 liquid 08/19/19 Unknown Rx Chlorhexidine Gluconate [Hibiclens] 10 ml TP BID #240 liquid 08/19/19 Unknown Rx Sulfamethoxazole/Trimethoprim 1 each PO BID #20 tablet 08/19/19 Unknown Rx [Bactrim Ds] Sulfamethoxazole/Trimethoprim 1 each PO BID #20 tablet 08/19/19 Unknown Rx [Bactrim Ds] cephALEXin [Keflex] 500 mg PO Q6HR #40 capsule 08/19/19 Unknown Rx cephALEXin [Keflex] 500 mg PO Q6HR #40 capsule 08/19/19 Unknown Rx Allergies Allergy/AdvReac Type Severity Reaction Status Date / Time No Known Allergies Allergy Verified 03/31/19 09:56 ED Review of Systems ROS: Stated complaint: PAIN ON (R)FOOT Other details as noted in HPI Comment: All other systems reviewed and negative ED Past Medical Hx - Past Medical History Previous Medical History?: Yes Hx Hypertension: Yes Hx CVA: No Hx Heart Attack/AMI: No Hx Congestive Heart Failure: No Hx Diabetes: No Hx Deep Vein Thrombosis: No Hx Pulmonary Embolism: No Hx GERD: Yes Hx Liver Disease: No Hx Renal Disease: No Hx Sickle Cell Disease: No Hx Arthritis: Yes Hx Seizures: No Hx Kidney Stones: No Hx Psychiatric Treatment: No Hx Asthma: No Hx COPD: No Hx Tuberculosis: No Hx Dementia: No Hx HIV: No Additional medical history: chronic back pain; chronic left leg pain. glaucoma. Right clavicle fracture - Surgical History Past Surgical History?: Yes Hx Coronary Stent: No Hx Open Heart Surgery: No Hx Pacemaker: No Hx Internal Defibrillator: No Hx Cholecystectomy: No Hx Appendectomy: No Hx Breast Surgery: No Additional Surgical History: left leg/ankle surgery,left knee surgery. cataract surgery both eyes. left total knee replacement and bone graft 08/20/16. Right rotator cuff repair. - Social History Smoking Status: Never Smoker Substance Use Type: None - Medications Home Medications: Home Medications Medication Instructions Recorded Confirmed Last Taken Type Omeprazole Magnesium [PriLOSEC Otc] 20 mg PO QDAY 05/30/17 07/10/18 07/09/18 History Fluticasone [Flonase] 1 spray NS QDAY #1 bottle 12/18/17 07/10/18 07/08/18 Rx Lisinopril/Hydrochlorothiazide 1 tab PO QDAY #40 tab 12/18/17 07/10/18 07/09/18 09:00 Rx [Zestoretic 20-25 mg] amLODIPine 10 mg PO DAILY #40 tablet 12/18/17 07/10/18 07/09/18 09:00 Rx Ibuprofen [Motrin] 800 mg PO Q8HR PRN 06/30/18 07/10/18 07/03/18 History Oxycodone HCl [oxyCODONE TAB] 10 mg PO Q6H PRN #30 tablet 07/10/18 Unknown Rx traMADoL [Ultram 50 MG tab] 50 mg PO Q6HR PRN #8 tablet 07/30/18 Unknown Rx Butalb/Acetamin/Caff 50-325-40 1 tab PO Q6HR PRN #8 tab 08/12/18 Unknown Rx [Fioricet] Ibuprofen [Motrin 800 MG tab] 800 mg PO Q8HR PRN #12 tablet 08/12/18 Unknown Rx traMADoL [Ultram 50 MG tab] 50 mg PO Q6HR PRN #5 tablet 09/10/18 Unknown Rx Ibuprofen [Motrin] 600 mg PO Q8H PRN #20 tablet 11/17/18 Unknown Rx methOCARBAMOL [Robaxin TAB] 500 mg PO Q6H PRN #15 tablet 11/17/18 Unknown Rx traMADoL [Ultram 50 MG tab] 50 mg PO Q6HR PRN #20 tablet 12/28/[address] (Nf) 50 mg PO BID #20 tablet.dr 01/12/19 Unknown Rx Tizanidine HCl [Zanaflex] 4 mg PO DAILY #10 capsule 01/12/19 Unknown Rx Ibuprofen [Motrin 800 MG tab] 800 mg PO Q8HR PRN #10 tablet 03/03/19 Unknown Rx metFORMIN [Glucophage] 500 mg PO BID #60 tablet 03/03/19 Unknown Rx Naproxen [Naprosyn] 500 mg PO TID PRN #14 tablet 03/31/19 Unknown Rx Chlorhexidine Gluconate [Hibiclens] 10 ml TP BID #240 liquid 08/19/19 Unknown Rx Chlorhexidine Gluconate [Hibiclens] 10 ml TP BID #240 liquid 08/19/19 Unknown Rx Sulfamethoxazole/Trimethoprim 1 each PO BID #20 tablet 08/19/19 Unknown Rx [Bactrim Ds] Sulfamethoxazole/Trimethoprim 1 each PO BID #20 tablet 08/19/19 Unknown Rx [Bactrim Ds] cephALEXin [Keflex] 500 mg PO Q6HR #40 capsule 08/19/19 Unknown Rx cephALEXin [Keflex] 500 mg PO Q6HR #40 capsule 08/19/19 Unknown Rx ED Physical Exam - General Limitations: No Limitations General appearance: alert, in no apparent distress - Head Head exam: Present: atraumatic, normocephalic - Eye Eye exam: Present: normal appearance - ENT ENT exam: Present: mucous membranes moist - Neck Neck exam: Present: normal inspection - Respiratory Respiratory exam: Present: normal lung sounds bilaterally. Absent: respiratory distress - Cardiovascular Cardiovascular Exam: Present: regular rate, normal rhythm. Absent: systolic m urmur, diastolic murmur, rubs, gallop - GI/Abdominal GI/Abdominal exam: Present: soft, normal bowel sounds - Rectal Rectal exam: Present: deferred - Extremities Exam Extremities exam: Present: normal inspection - Expanded Lower Extremity Exam Right Foot/Toe exam: Present: tenderness, swelling, erythema Neuro vascular tendon exam: Present: no vascular compromise 1 - Redness swelling tenderness puncture wound site - Back Exam Back exam: Present: normal inspection - Neurological Exam Neurological exam: Present: alert, oriented X3 - Psychiatric Psychiatric exam: Present: normal affect, normal mood - Skin Skin exam: Present: warm, dry, intact, normal color. Absent: rash ED Course Vital Signs 08/19/19 16:36 Temperature 98.5 F Pulse Rate 82 Respiratory 20 Rate Blood Pressure 128/73 O2 Sat by Pulse 96 Oximetry ED Lower Extremity MDM - Medical Decision Making 58-year-old -[place] male diabetic presents with initial presentation of local erythema, warmth, swelling concerning for cellulitis. Sensitivity/pain to light touch around the erythematous area. No lymphangitic spread visible and no fluid pockets or fluctuance c/f abscess noted. Low c/f osteomyelitis or DVT. No immune compromise(with the exception of history of diabetes), bullae, pain out of proportion, or rapid progression c/f necrotizing fasciitis. In ED: Erythema outlined Rx: Cephalexin 500mg PO q6hrs,_ Disposition: No evidence of serious bacterial illness requiring admission for IV antibiotics. Nontoxic appearing, VSS. Low risk for treatment failure based on history. Will discharge home with PO antibiotics and return precautions discussed at bedside. Critical care attestation.: If time is entered above; I have spent that time in minutes in the direct care of this critically ill patient, excluding procedure time. ED Disposition Clinical Impression: Cellulitis, Puncture wound Disposition: DC-01 TO HOME OR SELFCARE Is pt being admited?: No Does the pt Need Aspirin: No Condition: Stable Instructions: Puncture Wound (ED) Additional Instructions: You have been evaluated in the Emergency Department today for a skin infection. If the area of inflammation was outlined today in the ER, please return to the ER immediately if the area of redness increases beyond that border. Please take your prescribed antibiotics as directed for the full course of the medication. We recommend you take 600mg ibuprofen every 6 hours or tylenol 650mg every 6 hours as needed for pain. If needed, you can alternate these medications so that you take one medication every 3 hours. For instance, at noon take ibuprofen, then at 3pm take tylenol, then at 6pm take ibuprofen. Please schedule an appointment for follow up with your primary care physician as soon as possible. Return to the Emergency Department if you experience recurrent vomiting, fevers greater than 100.4F, increase in area of redness, warmth around the area, foul smelling discharge from the area, increased tenderness around the area, or any other concerning symptoms. Thank you for choosing us for your care. Prescriptions: Sulfamethoxazole/Trimethoprim [Bactrim Ds] 1 each PO BID #20 tablet Sulfamethoxazole/Trimethoprim [Bactrim Ds] 1 each PO BID #20 tablet Chlorhexidine Gluconate [Hibiclens] 10 ml TP BID #240 liquid Chlorhexidine Gluconate [Hibiclens] 10 ml TP BID #240 liquid cephALEXin [Keflex] 500 mg PO Q6HR #40 capsule cephALEXin [Keflex] 500 mg PO Q6HR #40 capsule Referrals: [facility] [Provider Group] - [place]
== END 2019-08-19 18:00 | disposition home or self-care (01) ==
LOC: ED 15:54
DX: S91.331A Puncture wound without foreign body, right foot, initial encounter (principal); I10 Essential (primary) hypertension; K21.9 Gastro-esophageal reflux disease without esophagitis; M19.90 Unspecified osteoarthritis, unspecified site; G89.29 Other chronic pain; Z98.890 Other specified postprocedural states; X58.XXXA Exposure to other specified factors, initial encounter; Y93.89 Activity, other specified; Y92.89 Other specified places as the place of occurrence of the external cause; Y99.8 Other external cause status
CPT/HCPCS: 73630; 90471; 90715; 96372; 99283; J0696

== ENCOUNTER 2019-10-27 08:03 | Outpatient (CLI) | payer MEDICARE ==
--- NOTE | 2019-10-27 09:03 | XRay Report ---
RIGHT SHOULDER. INDICATION / CLINICAL INFORMATION: M25.511 PAIN IN RIGHT SHOULDER COMPARISON: 03/19/2019, 10/20/2018 FINDINGS: BONES / JOINT(S): No acute fracture or subluxation. Stable positioning of tendon anchors from prior r otator cuff repair. No evidence of hardware failure. 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 Mild degenerative changes of the right acromioclavicular joint. SOFT TISSUES: No significant abnormality. ADDITIONAL FINDINGS: None. IMPRESSION: No evidence of acute osseous injury. Stable appearance of the shoulder compared to multiple prior exams. Signer Name: Willi Weiner MD Signed: 10/27/2019 8:59 AM Workstation Name: [id number]
== END 2019-10-27 08:04 | disposition home or self-care (01) ==
LOC: XRAY 08:03
PROVIDERS: ATTEND Orthopaedic Surgery
DX: S42.031D Displaced fracture of lateral end of right clavicle, subsequent encounter for fracture with routine healing (principal); M19.011 Primary osteoarthritis, right shoulder; X58.XXXD Exposure to other specified factors, subsequent encounter

== ENCOUNTER 2020-06-26 09:21 | Outpatient (CLI) | payer MEDICARE ==
--- NOTE | 2020-06-26 11:54 | Cat Scan Report ---
CT UPPER EXTREMITY LEFT WITH CONTRAST INDICATION : SPRAIN OF LEFT ROTATOR CUFF. Left shoulder pain TECHNIQUE: Axial imaging performed through the left shoulder following intra-articular contrast agen t. Sagittal and coronal reformatted images. All CT scans at this location are performed using CT dose reduction for ALARA by means of automated exposure control. COMPARISON: Left shoulder films dated 03/31/2019. FINDINGS: There is a large full-thickness defect in the distal supraspinatus tendon approximately 1 c m from its attachment site on the proximal humerus. This defect measures up to 2.2 cm in width on the sagittal CT images. This appears to extend to involve the rotator cuff interval. The subscapularis t endon, long head of the biceps tendon, infraspinatus tendon and teres minor tendon are intact. No tonya ss labral defect is appreciated. The bony structures are intact. No fracture or bone lesion. Mild osteoarthritic changes are noted at the AC joint. There is minimal inferior spurring but no convincing evidence for impingement on CT. No significant degenerative changes at the glenohumeral joint. IMPRESSION: Large full-thickness tear in the distal supraspinatus tendon as described. Signer Name: Christian Rainey Jr, MD Signed: 06/26/2020 11:50 AM Workstation Name: [id number]
--- NOTE | 2020-06-26 12:11 | Short Stay Summary ---
Short Stay Documentation Date of service: 06/26/20 Narrative H&P: left shoulder pain - History Principal diagnosis: rotator cuff strain - Allergies and Medications Current Medications: Allergies No Known Allergies Allergy (Verified 03/31/19 09:56) Home Medications Medication Instructions Recorded Confirmed Last Taken Type Omeprazole Magnesium [PriLOSEC Otc] 20 mg PO QDAY 05/30/17 07/10/18 07/09/18 History Fluticasone [Flonase] 1 spray NS QDAY #1 bottle 12/18/17 07/10/18 07/08/18 Rx Lisinopril/Hydrochlorothiazide 1 tab PO QDAY #40 tab 12/18/17 07/10/18 07/09/18 09:00 Rx [Zestoretic 20-25 mg] amLODIPine 10 mg PO DAILY #40 tablet 12/18/17 07/10/18 07/09/18 09:00 Rx Ibuprofen [Motrin] 800 mg PO Q8HR PRN 06/30/18 07/10/18 07/03/18 History Oxycodone HCl [oxyCODONE TAB] 10 mg PO Q6H PRN #30 tablet 07/10/18 Unknown Rx traMADoL [Ultram 50 MG tab] 50 mg PO Q6HR PRN #8 tablet 07/30/18 Unknown Rx Butalb/Acetamin/Caff 50-325-40 1 tab PO Q6HR PRN #8 tab 08/12/18 Unknown Rx [Fioricet] Ibuprofen [Motrin 800 MG tab] 800 mg PO Q8HR PRN #12 tablet 08/12/18 Unknown Rx traMADoL [Ultram 50 MG tab] 50 mg PO Q6HR PRN #5 tablet 09/10/18 Unknown Rx Ibuprofen [Motrin] 600 mg PO Q8H PRN #20 tablet 11/17/18 Unknown Rx methOCARBAMOL [Robaxin TAB] 500 mg PO Q6H PRN #15 tablet 11/17/18 Unknown Rx traMADoL [Ultram 50 MG tab] 50 mg PO Q6HR PRN #20 tablet 12/28/[address] (Nf) 50 mg PO BID #20 tablet.dr 01/12/19 Unknown Rx Tizanidine HCl [Zanaflex] 4 mg PO DAILY #10 capsule 01/12/19 Unknown Rx Ibuprofen [Motrin 800 MG tab] 800 mg PO Q8HR PRN #10 tablet 03/03/19 Unknown Rx metFORMIN [Glucophage] 500 mg PO BID #60 tablet 03/03/19 Unknown Rx Naproxen [Naprosyn] 500 mg PO TID PRN #14 tablet 03/31/19 Unknown Rx Chlorhexidine Gluconate [Hibiclens] 10 ml TP BID #240 liquid 08/19/19 Unknown Rx Chlorhexidine Gluconate [Hibiclens] 10 ml TP BID #240 liquid 08/19/19 Unknown Rx Sulfamethoxazole/Trimethoprim 1 each PO BID #20 tablet 08/19/19 Unknown Rx [Bactrim Ds] Sulfamethoxazole/Trimethoprim 1 each PO BID #20 tablet 08/19/19 Unknown Rx [Bactrim Ds] cephALEXin [Keflex] 500 mg PO Q6HR #40 capsule 08/19/19 Unknown Rx cephALEXin [Keflex] 500 mg PO Q6HR #40 capsule 08/19/19 Unknown Rx - Physical exam General appearance: no acute distress Extremities: pulses intact, No edema, abnormal (decreased ROM) - Brief post op/procedure progress note Date of procedure: 06/26/20 Pre-op diagnosis: rotator cuff strain Post-op diagnosis: other (rotator cuff tear) Procedure: left shoulder arthrogram Anesthesia: local Findings: RTC tear Surgeon: CORDELIA GRANADO Estimated blood loss: none Pathology: none Condition: stable - Hospital course Hospital course: uneventful - Disposition Condition at discharge: Good Disposition: DC-01 TO HOME OR SELFCARE Short Stay Discharge Plan Follow up with: CLAUDIA LEES MD [Primary Care Provider] - 7 Days
--- NOTE | 2020-06-26 12:24 | Fluoroscopy Report ---
ARTHROGRAM OF THE LEFT SHOULDER HISTORY: SPRAIN OF LEFT ROTATOR CUFF. COMPARISON: None. CONSENT: The risks,benefits, and alternatives of theprocedure were discussed with the patient who agr eed toproceed. TECHNIQUE: The patient was placed supine on the fluoroscopy table. The left shoulder joint was ident ified and overlying skin demarcated under fluoroscopic guidance. Area was prepped and draped in the u sual sterile fashion. Time-out was performed. Skin and subcutaneous tissues were anesthetized with lidocaine. A 22-gauge spinal needle was placed into the joint space under fluoroscopic guidance. Approximately 1 7 cc of a diluted Omnipaque 300 mixture was injected. The needle was removed and the patient tolerate d the procedure well without immediate complication. FLUOROSCOPIC TIME: 2.6 minutes # IMAGES: 8 IMPRESSION: Technically successful arthrogram. The patient was sent to CT for CT arthrogram in stable condition. Signer Name: Christian Rainey Jr, MD Signed: 06/26/2020 12:20 PM Workstation Name: [id number]
== END 2020-06-26 09:22 | disposition home or self-care (01) ==
LOC: FLUORO 09:21
PROVIDERS: ATTEND Orthopaedic Surgery
DX: S43.422A Sprain of left rotator cuff capsule, initial encounter (principal); I73.9 Peripheral vascular disease, unspecified; S46.012A Strain of muscle(s) and tendon(s) of the rotator cuff of left shoulder, initial encounter; I10 Essential (primary) hypertension; K21.9 Gastro-esophageal reflux disease without esophagitis; M19.90 Unspecified osteoarthritis, unspecified site; Z79.899 Other long term (current) drug therapy; Z98.49 Cataract extraction status, unspecified eye; Z87.01 Personal history of pneumonia (recurrent); Z85.46 Personal history of malignant neoplasm of prostate; Z87.440 Personal history of urinary (tract) infections; Z96.652 Presence of left artificial knee joint; X58.XXXA Exposure to other specified factors, initial encounter; Y93.89 Activity, other specified; Y92.89 Other specified places as the place of occurrence of the external cause; Y99.8 Other external cause status
CPT/HCPCS: 23350; 73040; 73201; Q9967

== ENCOUNTER 2020-07-13 05:51 | Day surgery (SDC) | payer MEDICARE ==
[~2020-07-13 05:51] MED LIST: ceFAZolin/Water 2 GM/20 ML 2 GM/20 ML SYRINGE IV NR
[2020-07-13] MEDS ORDERED: GABAPENTIN 300 MG CAP PO NR (06:00)
[2020-07-13] MEDS ORDERED: ACETAMINOPHEN 500 MG TAB PO SCH (06:00)
[2020-07-13] MEDS ORDERED: fentaNYL 100 MCG/2 ML INJ IV PRN (06:00)
[2020-07-13] MEDS ORDERED: LACTATED RINGERS 1,000 ML IV SCH (06:00)
[2020-07-13] MEDS ORDERED: MIDAZOLAM 2 MG/2 ML INJ IV NR (06:00)
[2020-07-13] MEDS ORDERED: BACTERIOSTATIC SODIUM CHLORIDE 0.9% 30 ML VIAL INFILTRATI ONE (06:20)
[2020-07-13] MEDS ORDERED: EPINEPHrine 30 MG/30 ML INJ IV ONE (06:33)
[2020-07-13] MEDS ORDERED: methylPREDNISolone ACETATE 40 MG/1 ML INJ ONE (06:33)
[2020-07-13] MEDS ORDERED: BUPIVACAINE-EPINEPHRINE/PF 0.5%-1:200,000 (30 ML) VIAL INFILTRATI ONE (06:33)
[2020-07-13] MEDS ORDERED: ROCURONIUM 50 MG/5 ML INJ IV ONE (07:11)
[2020-07-13] MEDS ORDERED: propofoL 200 MG/20 ML VIAL IV ONE (07:12)
--- NOTE | 2020-07-13 07:29 | Anesthesia Consultation ---
Anesthesia Consult and Med Hx Date of service: 07/13/20 - Airway Anesthetic Teeth Evaluation: Good ROM Head & Neck: Adequate Mental/Hyoid Distance: Adequate Mallampati Class: Class III Intubation Access Assessment: Possibly Difficult - Pulmonary Exam CTA: Yes - Cardiac Exam Cardiac Exam: RRR - Pre-Operative Health Status ASA Pre-Surgery Classification: ASA3 Proposed Anesthetic Plan: General Nerve Block: IS - Pulmonary Hx Smoking: Yes (STOPPED X 4 YRS) Hx Asthma: No COPD: No Hx Pneumonia: Yes (RESOLVED) Hx Sleep Apnea: Yes (DX SLEEP APNEA , NO CPAP USE.) - Cardiovascular System Hx Hypertension: Yes (X 14 YRS) Hx Heart Attack/AMI: No Hx Pacemaker: No Hx Internal Defibrillator: No Hx Peripheral Vascular Disease: Yes (CHRONIC LEFT LEG PAIN) - Central Nervous System Hx Seizures: No Hx Back Pain: Yes (CHRONIC) Hx Psychiatric Problems: No - Endocrine Hx Renal Disease: No Hx Liver Disease: No Hx Non-Insulin Dependent Diabetes: Yes - Hematic Hx Anemia: No Hx Sickle Cell Disease: No - Other Systems Hx Cancer: Yes (prostate) Hx Obesity: Yes
--- NOTE | 2020-07-13 07:30 | Anesthesia Day of Surgery ---
Anesthesia Day of Surgery - Day of Surgery Patient Examined: Yes Patient H&P Reviewed: Yes Patient is NPO: Yes
[2020-07-13] MEDS ORDERED: dexAMETHasone 4 MG/ML VIAL ONE (07:39)
[2020-07-13] MEDS ORDERED: HYDROmorphone 1 MG/1 ML INJ ONE (08:17)
[2020-07-13] MEDS ORDERED: PHENYLEPHRINE/NS 1,000 MCG/10 ML SYRINGE (OR USE) IV ONE (09:00)
[2020-07-13] MEDS ORDERED: ONDANSETRON 4 MG/2 ML INJ ONE (09:00)
[2020-07-13] MEDS ORDERED: KETOROLAC 30 MG/1 ML INJ ONE (09:00)
[2020-07-13] MEDS ORDERED: dexAMETHasone 20 MG/5 ML VIAL ONE (09:00)
[2020-07-13] MEDS ORDERED: EPINEPHrine 1 MG/10 ML SYRINGE ONE (09:04)
[2020-07-13] MEDS ORDERED: ePHEDrine SULFATE 50 MG/1 ML INJ ONE (09:06)
[2020-07-13] MEDS ORDERED: EPINEPHrine 1 MG/10 ML SYRINGE IV ONE (09:09)
[2020-07-13] MEDS ORDERED: SODIUM CHLORIDE 0.9% IRRIG SOLN 3000 ML IR ONE ×2 (09:11→09:12)
[2020-07-13] MEDS ORDERED: LACTATED RINGERS 1,000 ML ONE (09:43)
[2020-07-13] MEDS ORDERED: fentaNYL 100 MCG/2 ML INJ ONE (11:50)
--- NOTE | 2020-07-13 13:19 | Procedure Note ---
Date of procedure: 07/13/20 Pre-op diagnosis: Full-thickness rotator cuff tear left shoulder Post-op diagnosis: same Procedure: Arthroscopy [Left] shoulder with subacromial decompression and rotator cuff tendon using suture anchors Procedure The patient was brought to the OR after being given a scalene nerve block for postop pain management . He was placed in the OR table in supine position following induction and intubation by anesthesia patient was placed in the right lateral decubitus position the [left] upper extremity was prepped and draped in the usual sterile manner. A timeout procedure was done to identify the patient and the correct operative site. Routine arthroscopic portals were made following introduction of the arthroscope and instruments and insufflation of the subacromial space with normal saline solution patient was noted to have a full-thickness rotator cuff tear which extended from the supraspinatus anteriorly towards the infraspinatus posteriorly in addition he was also noted to have abundant synovial bursal thickening as well as significant impingement from the acromion and acromioclavicular joints. Using a tissue ablator the soft tissue was removed from both the bursal tissues as well as the periosteal tissues overlying the distal acromion and acromioclavicular joints A large bur was used to debride the bony impingement again this was done under arthroscopic visualization. The anatomic footprint was then seen and debrided using the ti ssue ablator. The rotator cuff tendons was grasped using a tissue grasper and appeared to move well in the direction of anatomic repair at the footprint. Next 2 suture anchor sutures were placed into these supraspinatus tendon anteriorly as well as the infraspinatus tendon posteriorly the suture anchors were secured into the greater tuberosity followed by tightening of the sutures and pulling the rotator cuff tendon firmly onto the anatomic footprint arthroscopic photographs were obtained showing good placement of the rotator cuff repair following this the wound was copiously irrigated via stab wounds were repaired with 2 postop dressings were applied the patient was extubated and was taken to postanesthesia recovery in stable condition. Anesthesia: MAC, regional Surgeon: SHANNON MCCULLOUGH Spray Rig Operator: NOHEMI CARBAJAL Estimated blood loss: minimal Pathology: none Condition: stable Disposition: PACU
[2020-07-13] MEDS ORDERED: INSULIN REGULAR, HUMAN 100 UNITS/1 ML ONE (14:30)
[2020-07-13] MEDS ORDERED: INSULIN REGULAR, HUMAN 100 UNIT/ML 3ML VIAL ONE (14:49)
[2020-07-13] MEDS ORDERED: INSULIN REGULAR, HUMAN 100 UNIT/ML 3ML VIAL SUB-Q ONE (14:58)
[2020-07-13 15:32] VITALS: BP 134/76
--- NOTE | 2020-07-13 15:39 | Post Anesthesia Evaluation ---
- Post Anesthesia Evaluation Patient Participated: Yes Airway Patent: Yes Stable Respiratory Function: Yes Nausea/Vomiting: No Temp > 96.8F: Yes Pain Manageable: Yes Adequeate Hydration: Yes Anesthesia Complications: No
== END 2020-07-13 15:37 | disposition home or self-care (01) ==
LOC: OR 05:51
PROVIDERS: ATTEND Orthopaedic Surgery
DX: M75.102 Unspecified rotator cuff tear or rupture of left shoulder, not specified as traumatic (principal); M75.42 Impingement syndrome of left shoulder; E78.00 Pure hypercholesterolemia, unspecified; I10 Essential (primary) hypertension; G47.30 Sleep apnea, unspecified; E11.39 Type 2 diabetes mellitus with other diabetic ophthalmic complication; H40.9 Unspecified glaucoma; E11.51 Type 2 diabetes mellitus with diabetic peripheral angiopathy without gangrene; E66.9 Obesity, unspecified; K21.9 Gastro-esophageal reflux disease without esophagitis; M19.90 Unspecified osteoarthritis, unspecified site; Z79.899 Other long term (current) drug therapy; Z79.84 Long term (current) use of oral hypoglycemic drugs; Z85.46 Personal history of malignant neoplasm of prostate; Z87.891 Personal history of nicotine dependence; Z87.01 Personal history of pneumonia (recurrent); Z98.890 Other specified postprocedural states; Z96.652 Presence of left artificial knee joint; Z68.36 Body mass index [BMI] 36.0-36.9, adult; Z86.2 Personal history of diseases of the blood and blood-forming organs and certain disorders involving the immune mechanism
CPT/HCPCS: 29826; 29827; 36415; 64415; 82962; 84132; A4217; C1713; J0171; J0690; J1030; J1100; J1170; J1885; J2250; J2370; J2405; J2704; J3010; J7120; J1815